=== PATIENT | male | born 1970 | race African-American/Black ===

== ENCOUNTER 2020-05-09 11:50 | Inpatient (IN) | payer OTHER ==
[2020-05-09 15:32] VITALS: BMI 20.4
[2020-05-09] MEDS ORDERED: ONDANSETRON *ODT* 4 MG TABLET SL PRN (15:46)
[2020-05-09] MEDS ORDERED: METHADONE HCL 10 MG TABLET (FOR DETOX USE ONLY) PO ONE (15:46)
[2020-05-09] MEDS ORDERED: IBUPROFEN 400 MG TABLET (FP) PO PRN (15:46)
[2020-05-09] MEDS ORDERED: BISMUTH SUBSALICYLATE 524 MG/30 ML UD PO PRN (15:46)
[2020-05-09] MEDS ORDERED: MAGNESIUM HYDROX 2400MG/30ML ORAL SUSPENSION 30 ML CUP PO PRN (15:46)
[2020-05-09] MEDS ORDERED: MENTHOL/PHENOL 1 EACH UD MM PRN (15:46)
[2020-05-09] MEDS ORDERED: MAGNESIUM CITRATE 300 ML BOTTLE PO PRN (15:46)
[2020-05-09] MEDS ORDERED: NICOTINE POLACRILEX 2 MG GUM BUC PRN (15:46)
[2020-05-09] MEDS ORDERED: ACETAMINOPHEN 325 MG TABLET (FP) PO PRN ×2 (15:46)
[2020-05-09] MEDS ORDERED: MAG HYDROX/AL HYDROX/SIMETH 30 ML UNIT-DOSE CUP PO PRN (15:46)
[2020-05-09] MEDS: cloNIDine HCL 0.1 MG TABLET PO PRN (16:42)
[2020-05-09] MEDS: NICOTINE 7 MG/24 HOURS TOPICAL PATCH TD SCH (16:45)
[2020-05-09] MEDS ORDERED: cloNIDine HCL 0.1 MG TABLET PO ONE (16:47)
[2020-05-09] MEDS: hydrOXYzine PAMOATE 25 MG CAPSULE (FP) PO SCH ×2 (17:00→22:21)
[2020-05-09] MEDS: PRENATAL VITAMINS W/ FOLIC ACID TABLET (FP) PO SCH (18:05)
[2020-05-09] MEDS: THIAMINE HCL 100 MG TABLET (FP) PO SCH (22:21)
[2020-05-09] MEDS: MELATONIN 5 MG TABLETS PO SCH (22:21)
[2020-05-10] MEDS: hydrOXYzine PAMOATE 25 MG CAPSULE (FP) PO SCH ×2 (06:31→10:40)
[2020-05-10] MEDS: cloNIDine HCL 0.1 MG TABLET PO PRN (06:32)
[2020-05-10] MEDS ORDERED: METHADONE HCL 10 MG TABLET (FOR DETOX USE ONLY) ONE (08:58)
[2020-05-10] MEDS ORDERED: METHADONE HCL 5 MG TABLET (FOR DETOX USE ONLY) ONE (08:58)
[2020-05-10] MEDS ORDERED: MINERAL OIL/PET HY-PHL TOPICAL OINTMENT 454 GM JAR TP SCH (10:00)
[2020-05-10] MEDS ORDERED: METHADONE (DETOX) 20 MG, METHADONE (DETOX) 5 MG PO ONE (10:00)
[2020-05-10] MEDS: PRENATAL VITAMINS W/ FOLIC ACID TABLET (FP) PO SCH (10:36)
[2020-05-10] MEDS: risperiDONE 1 MG TABLET PO SCH ×2 (10:36→22:22)
[2020-05-10] MEDS: NICOTINE 7 MG/24 HOURS TOPICAL PATCH TD SCH (10:37)
[2020-05-10 10:43] LABS: HEMATOCRIT 31.1 % (35.4-49); HEMOGLOBIN 9.9 GM/dL (11.7-16.9); MCH 31.8 pg (25.7-33.7); MCHC 31.8 g/dl (32.0-35.9); MEAN PLT VOLUME 8.3 fl (7.5-11.1); PLATELET COUNT 176 K/MM3 (134-434); RBC 3.11 M/mm3 (4.00-5.60); RDW 13.5 % (11.9-15.9); WHITE BLOOD COUNT 6.3 K/mm3 (4.0-10.0)
[2020-05-10 10:54] LABS: POTASSIUM 3.8 mmol/L (3.5-5.1)
[2020-05-10 11:01] LABS: CALCIUM 8.5 mg/dL (8.5-10.1)
[2020-05-10 11:04] LABS: ALBUMIN 3.1 g/dl (3.4-5.0)
[2020-05-10 11:05] LABS: CREATININE 0.9 mg/dL (0.55-1.3)
[2020-05-10 11:07] LABS: BILIRUBIN,TOTAL 0.6 mg/dL (0.2-1)
[2020-05-10] MEDS ORDERED: hydrOXYzine PAMOATE 25 MG CAPSULE (FP) PO PRN (11:45)
[2020-05-10 11:49] LABS: HIV INTERPRETATION NEGATIVE (NEGATIVE)
[2020-05-10] MEDS: ALBUTEROL SO4 HFA INHALER IH PRN (16:52)
[2020-05-10] MEDS: FERROUS SO4 325 MG TABLET (FP) PO SCH (17:51)
[2020-05-10] MEDS: METHOCARBAMOL 500 MG TABLET PO PRN (17:53)
[2020-05-10] MEDS: MELATONIN 5 MG TABLETS PO SCH (22:22)
[2020-05-10] MEDS: THIAMINE HCL 100 MG TABLET (FP) PO SCH (22:22)
[2020-05-11] MEDS: FERROUS SO4 325 MG TABLET (FP) PO SCH ×3 (07:28→18:40)
[2020-05-11] MEDS ORDERED: METHADONE HCL 10 MG TABLET (FOR DETOX USE ONLY) PO ONE (10:00)
[2020-05-11] MEDS: MINERAL OIL/PETROLAT/WATER TOPICAL CREAM 113 GM JAR TP PRN (10:04)
[2020-05-11] MEDS: PRENATAL VITAMINS W/ FOLIC ACID TABLET (FP) PO SCH (10:04)
[2020-05-11] MEDS: risperiDONE 1 MG TABLET PO SCH ×2 (10:04→22:08)
[2020-05-11] MEDS: NICOTINE 7 MG/24 HOURS TOPICAL PATCH TD SCH (10:06)
[2020-05-11] MEDS: ALBUTEROL SO4 HFA INHALER IH PRN (18:36)
[2020-05-11] MEDS: METHOCARBAMOL 500 MG TABLET PO PRN (22:08)
[2020-05-11] MEDS: MELATONIN 5 MG TABLETS PO SCH (22:08)
[2020-05-11] MEDS: THIAMINE HCL 100 MG TABLET (FP) PO SCH (22:08)
[2020-05-12] MEDS: FERROUS SO4 325 MG TABLET (FP) PO SCH ×3 (07:38→18:25)
[2020-05-12] MEDS ORDERED: METHADONE HCL 10 MG TABLET (FOR DETOX USE ONLY) ONE (08:56)
[2020-05-12] MEDS ORDERED: METHADONE HCL 5 MG TABLET (FOR DETOX USE ONLY) ONE (08:56)
[2020-05-12] MEDS ORDERED: METHADONE (DETOX) 10 MG, METHADONE (DETOX) 5 MG PO ONE (10:00)
[2020-05-12] MEDS: PRENATAL VITAMINS W/ FOLIC ACID TABLET (FP) PO SCH (10:02)
[2020-05-12] MEDS: risperiDONE 1 MG TABLET PO SCH ×2 (10:02→22:17)
[2020-05-12] MEDS: NICOTINE 7 MG/24 HOURS TOPICAL PATCH TD SCH (10:02)
[2020-05-12] MEDS: MINERAL OIL/PETROLAT/WATER TOPICAL CREAM 113 GM JAR TP PRN (10:02)
[2020-05-12 11:41] LABS: BASO % 0.6 % (0-2.0); EOS % 3.8 % (0-4.5); HEMATOCRIT 30.2 % (35.4-49); LYMPH % 20.5 % (8-40); MCH 33.1 pg (25.7-33.7); MCHC 33.2 g/dl (32.0-35.9); MEAN CELL VOLUME 99.7 fl (80-96); MEAN PLT VOLUME 9.1 fl (7.5-11.1); MONO % 8.8 % (3.8-10.2); NEUT % 66.3 % (42.8-82.8); PLATELET COUNT 187 K/MM3 (134-434); RBC 3.03 M/mm3 (4.00-5.60); RDW 13.6 % (11.9-15.9); WHITE BLOOD COUNT 6.4 K/mm3 (4.0-10.0)
[2020-05-12] MEDS: ALBUTEROL SO4 HFA INHALER IH PRN (17:35)
[2020-05-12] MEDS: THIAMINE HCL 100 MG TABLET (FP) PO SCH (22:17)
[2020-05-12] MEDS: MELATONIN 5 MG TABLETS PO SCH (22:18)
[2020-05-12] MEDS: METHOCARBAMOL 500 MG TABLET PO PRN (22:20)
[2020-05-13] MEDS: FERROUS SO4 325 MG TABLET (FP) PO SCH ×3 (07:24→18:11)
[2020-05-13] MEDS ORDERED: METHADONE HCL 10 MG TABLET (FOR DETOX USE ONLY) PO ONE (10:00)
[2020-05-13] MEDS: PRENATAL VITAMINS W/ FOLIC ACID TABLET (FP) PO SCH (10:56)
[2020-05-13] MEDS: risperiDONE 1 MG TABLET PO SCH ×2 (10:56→22:27)
[2020-05-13] MEDS: NICOTINE 7 MG/24 HOURS TOPICAL PATCH TD SCH (10:56)
[2020-05-13] MEDS ORDERED: cloNIDine HCL 0.1 MG TABLET PO ONE (18:01)
[2020-05-13] MEDS: ALBUTEROL SO4 HFA INHALER IH PRN (18:08)
[2020-05-13 21:34] VITALS: PULSE 50
[2020-05-13] MEDS: THIAMINE HCL 100 MG TABLET (FP) PO SCH (22:27)
[2020-05-13] MEDS: MELATONIN 5 MG TABLETS PO SCH (22:28)
[2020-05-14] MEDS ORDERED: METHADONE HCL 5 MG TABLET (FOR DETOX USE ONLY) PO ONE (06:00)
[2020-05-14 06:02] VITALS: BP 137/59; TEMP 97.7
[2020-05-14] MEDS: FERROUS SO4 325 MG TABLET (FP) PO SCH (07:00)
[2020-05-14] MEDS: risperiDONE 1 MG TABLET PO SCH (09:13)
== END 2020-05-14 09:35 | disposition home or self-care (01) | DRG 773 ==
LOC: YASAS 11:50 → Y6N 14:56
PROVIDERS: ADMIT Allergy & Immunology; ATTEND Allergy & Immunology
PROC: HZ2ZZZZ Detoxification Services for Substance Abuse Treatment (ICD-10-PCS; principal; 2020-05-09)
DX: F11.23 Opioid dependence with withdrawal (principal); F14.20 Cocaine dependence, uncomplicated; F12.20 Cannabis dependence, uncomplicated; F16.10 Hallucinogen abuse, uncomplicated; F17.210 Nicotine dependence, cigarettes, uncomplicated; F19.282 Other psychoactive substance dependence with psychoactive substance-induced sleep disorder; F25.9 Schizoaffective disorder, unspecified; J45.909 Unspecified asthma, uncomplicated; M48.00 Spinal stenosis, site unspecified; M54.5 Low back pain; G89.29 Other chronic pain; Z56.0 Unemployment, unspecified
CPT/HCPCS: 36415; 80053; 85025; 85027; 86780; 87389; 93005; 93010; C9803; J0735; J2794; U0003

== ENCOUNTER 2020-09-16 15:10 | Inpatient (IN) | payer OTHER ==
[2020-09-16 15:42] VITALS: BMI 19.8
[2020-09-16] MEDS ORDERED: NALOXONE HCL 0.4 MG/ML VIAL IM PRN (21:58)
[2020-09-16] MEDS ORDERED: LOPERAMIDE HCL 2 MG CAPSULE PO PRN (21:58)
[2020-09-16] MEDS ORDERED: MAGNESIUM HYDROX 2400MG/30ML ORAL SUSPENSION 30 ML CUP PO PRN (21:58)
[2020-09-16] MEDS ORDERED: P-EPHED 60MG/TRIPROLIDI 2.5MG TABLET PO PRN (21:58)
[2020-09-16] MEDS ORDERED: MAGNESIUM CITRATE 300 ML BOTTLE PO PRN (21:58)
[2020-09-16] MEDS ORDERED: ACETAMINOPHEN 325 MG TABLET (FP) PO PRN (21:58)
[2020-09-16] MEDS ORDERED: NALOXONE (NARCAN) HCL 4 MG/0.1 ML SPRAY NS PRN (21:58)
[2020-09-16] MEDS ORDERED: guaiFENesin 200 MG/10 ML 10 ML UNIT-DOSE CUPS PO PRN (21:58)
[2020-09-16] MEDS ORDERED: MAG HYDROX/AL HYDROX/SIMETH 30 ML UNIT-DOSE CUP PO PRN (21:58)
[2020-09-17] MEDS: THIAMINE HCL 100 MG TABLET (FP) PO SCH ×2 (00:55→21:09)
[2020-09-17] MEDS: MELATONIN 5 MG TABLETS PO SCH ×2 (00:55→21:09)
[2020-09-17] MEDS ORDERED: MASKS NR ONE (06:12)
[2020-09-17] MEDS ORDERED: METHADONE HCL 10 MG TABLET PO SCH (09:00)
[2020-09-17] MEDS ORDERED: METHADONE HCL 10 MG TABLET ONE (09:26)
[2020-09-17] MEDS ORDERED: METHADONE HCL 40 MG DISPERSABLE TABLET ONE (09:26)
[2020-09-17] MEDS: PRENATAL VITAMINS W/ FOLIC ACID TABLET (FP) PO SCH (09:55)
[2020-09-17] MEDS: METHADONE 10 MG, METHADONE 40 MG PO SCH (09:55)
[2020-09-17] MEDS: NICOTINE 14 MG/24 HOURS TOPICAL PATCH TD SCH (09:55)
[2020-09-17] MEDS: NICOTINE POLACRILEX 2 MG GUM BC PRN (09:57)
[2020-09-17 10:11] LABS: HEMATOCRIT 31.8 % (35.4-49); HEMOGLOBIN 10.6 GM/dL (11.7-16.9); MCH 33.6 pg (25.7-33.7); MCHC 33.3 g/dl (32.0-35.9); MEAN CELL VOLUME 100.9 fl (80-96); MEAN PLT VOLUME 8.4 fl (7.5-11.1); PLATELET COUNT 194 K/MM3 (134-434); RBC 3.15 M/mm3 (4.00-5.60); RDW 13.5 % (11.9-15.9); WHITE BLOOD COUNT 6.9 K/mm3 (4.0-10.0)
[2020-09-17 10:16] LABS: URINE APPEARANCE CLEAR; URINE BILIRUBIN NEGATIVE (NEGATIVE); URINE COLOR YELLOW; URINE GLUCOSE (UA) NEGATIVE (NEGATIVE); URINE KETONE NEGATIVE (NEGATIVE); URINE LEUK ESTERASE NEGATIVE (NEGATIVE); URINE NITRITE NEGATIVE (NEGATIVE); URINE PROTEIN NEGATIVE (NEGATIVE)
[2020-09-17 10:30] LABS: CALCIUM 8.6 mg/dL (8.5-10.1)
[2020-09-17 10:31] LABS: ALBUMIN 3.2 g/dl (3.4-5.0); BLOOD UREA NITROGEN 22.9 mg/dL (7-18)
[2020-09-17 10:34] LABS: CREATININE 1.1 mg/dL (0.55-1.3)
[2020-09-17 10:35] LABS: BILIRUBIN,TOTAL 0.3 mg/dL (0.2-1); TOT PROT 6.1 g/dl (6.4-8.2)
[2020-09-17] MEDS: hydrOXYzine PAMOATE 25 MG CAPSULE (FP) PO PRN (21:09)
[2020-09-18] MEDS ORDERED: METHADONE HCL 40 MG DISPERSABLE TABLET ONE (03:29)
[2020-09-18] MEDS ORDERED: METHADONE HCL 10 MG TABLET ONE (03:29)
[2020-09-18] MEDS: METHADONE 10 MG, METHADONE 40 MG PO SCH (06:18)
[2020-09-18] MEDS: IBUPROFEN 400 MG TABLET (FP) PO PRN ×2 (08:53→21:26)
[2020-09-18] MEDS: NICOTINE POLACRILEX 2 MG GUM BC PRN (08:54)
[2020-09-18] MEDS: PRENATAL VITAMINS W/ FOLIC ACID TABLET (FP) PO SCH (09:01)
[2020-09-18] MEDS: NICOTINE 14 MG/24 HOURS TOPICAL PATCH TD SCH (09:01)
[2020-09-18] MEDS: ALBUTEROL SO4 HFA INHALER IH PRN (16:09)
[2020-09-18] MEDS: MELATONIN 5 MG TABLETS PO SCH (21:24)
[2020-09-18] MEDS: THIAMINE HCL 100 MG TABLET (FP) PO SCH (21:24)
[2020-09-18] MEDS: hydrOXYzine PAMOATE 25 MG CAPSULE (FP) PO PRN (21:25)
[2020-09-19] MEDS ORDERED: METHADONE HCL 40 MG DISPERSABLE TABLET ONE (03:19)
[2020-09-19] MEDS ORDERED: METHADONE HCL 10 MG TABLET ONE (03:19)
[2020-09-19] MEDS: METHADONE 10 MG, METHADONE 40 MG PO SCH (05:59)
[2020-09-19] MEDS: hydrOXYzine PAMOATE 25 MG CAPSULE (FP) PO PRN ×2 (10:21→21:29)
[2020-09-19] MEDS: PRENATAL VITAMINS W/ FOLIC ACID TABLET (FP) PO SCH (10:21)
[2020-09-19] MEDS: NICOTINE 14 MG/24 HOURS TOPICAL PATCH TD SCH (10:22)
[2020-09-19] MEDS: NICOTINE POLACRILEX 2 MG GUM BC PRN (10:22)
[2020-09-19] MEDS: ALBUTEROL SO4 HFA INHALER IH PRN (10:24)
[2020-09-19] MEDS: BACITRACIN 0.9 GM PACKET TP SCH (15:26)
[2020-09-19] MEDS: IBUPROFEN 600 MG TABLET (FP) PO SCH ×2 (15:27→21:29)
[2020-09-19] MEDS: THIAMINE HCL 100 MG TABLET (FP) PO SCH (21:29)
[2020-09-19] MEDS: DOCUSATE SODIUM 100 MG CAPSULE (FP) PO SCH (21:30)
[2020-09-19] MEDS: LIDOCAINE PATCH REMOVAL MC SCH (21:30)
[2020-09-19] MEDS: MELATONIN 5 MG TABLETS PO SCH (21:30)
[2020-09-19] MEDS: AMMONIUM LACTATE 12% LOTION 225 GM BOTTLE TP SCH (21:30)
[2020-09-20] MEDS ORDERED: METHADONE HCL 10 MG TABLET ONE (05:31)
[2020-09-20] MEDS ORDERED: METHADONE HCL 40 MG DISPERSABLE TABLET ONE (05:31)
[2020-09-20 06:06] LABS: SARS-CoV-2 NAA Not Detected (Not Detected)
[2020-09-20] MEDS: IBUPROFEN 600 MG TABLET (FP) PO SCH ×3 (06:31→21:26)
[2020-09-20] MEDS: METHADONE 10 MG, METHADONE 40 MG PO SCH (06:32)
[2020-09-20] MEDS: BACITRACIN 0.9 GM PACKET TP SCH (10:29)
[2020-09-20] MEDS: NICOTINE 14 MG/24 HOURS TOPICAL PATCH TD SCH (10:30)
[2020-09-20] MEDS: PRENATAL VITAMINS W/ FOLIC ACID TABLET (FP) PO SCH (10:30)
[2020-09-20] MEDS: AMMONIUM LACTATE 12% LOTION 225 GM BOTTLE TP SCH ×2 (10:30→21:27)
[2020-09-20] MEDS: LIDOCAINE 5% TOPICAL PATCH TP SCH (10:30)
[2020-09-20] MEDS: NICOTINE POLACRILEX 2 MG GUM BC PRN (10:30)
[2020-09-20] MEDS: THIAMINE HCL 100 MG TABLET (FP) PO SCH (21:25)
[2020-09-20] MEDS: MELATONIN 5 MG TABLETS PO SCH (21:25)
[2020-09-20] MEDS: DOCUSATE SODIUM 100 MG CAPSULE (FP) PO SCH (21:26)
[2020-09-20] MEDS: LIDOCAINE PATCH REMOVAL MC SCH (21:27)
[2020-09-21] MEDS ORDERED: METHADONE HCL 10 MG TABLET ONE (03:24)
[2020-09-21] MEDS ORDERED: METHADONE HCL 40 MG DISPERSABLE TABLET ONE (03:24)
[2020-09-21] MEDS: IBUPROFEN 600 MG TABLET (FP) PO SCH ×3 (06:25→21:24)
[2020-09-21] MEDS: METHADONE 10 MG, METHADONE 40 MG PO SCH (06:25)
[2020-09-21] MEDS: PRENATAL VITAMINS W/ FOLIC ACID TABLET (FP) PO SCH (09:22)
[2020-09-21] MEDS: LIDOCAINE 5% TOPICAL PATCH TP SCH (09:22)
[2020-09-21] MEDS: BACITRACIN 0.9 GM PACKET TP SCH (09:23)
[2020-09-21] MEDS: NICOTINE POLACRILEX 2 MG GUM BC PRN (09:27)
[2020-09-21] MEDS: NICOTINE 14 MG/24 HOURS TOPICAL PATCH TD SCH (09:28)
[2020-09-21] MEDS: AMMONIUM LACTATE 12% LOTION 225 GM BOTTLE TP SCH ×2 (09:28→21:25)
[2020-09-21] MEDS: ALBUTEROL SO4 HFA INHALER IH PRN (18:03)
[2020-09-21] MEDS: MELATONIN 5 MG TABLETS PO SCH (21:25)
[2020-09-21] MEDS: THIAMINE HCL 100 MG TABLET (FP) PO SCH (21:25)
[2020-09-21] MEDS: DOCUSATE SODIUM 100 MG CAPSULE (FP) PO SCH (21:25)
[2020-09-21] MEDS: LIDOCAINE PATCH REMOVAL MC SCH (21:26)
[2020-09-22] MEDS ORDERED: METHADONE HCL 40 MG DISPERSABLE TABLET ONE (03:17)
[2020-09-22] MEDS ORDERED: METHADONE HCL 10 MG TABLET ONE (03:17)
[2020-09-22] MEDS: METHADONE 10 MG, METHADONE 40 MG PO SCH (06:27)
[2020-09-22] MEDS: IBUPROFEN 600 MG TABLET (FP) PO SCH ×3 (06:27→21:17)
[2020-09-22] MEDS: NICOTINE 14 MG/24 HOURS TOPICAL PATCH TD SCH (10:58)
[2020-09-22] MEDS: LIDOCAINE 5% TOPICAL PATCH TP SCH (10:58)
[2020-09-22] MEDS: BACITRACIN 0.9 GM PACKET TP SCH (10:58)
[2020-09-22] MEDS: AMMONIUM LACTATE 12% LOTION 225 GM BOTTLE TP SCH ×2 (10:58→21:17)
[2020-09-22] MEDS: NICOTINE POLACRILEX 2 MG GUM BC PRN (10:58)
[2020-09-22] MEDS: PRENATAL VITAMINS W/ FOLIC ACID TABLET (FP) PO SCH (10:58)
[2020-09-22] MEDS: ALBUTEROL SO4 HFA INHALER IH PRN (15:02)
[2020-09-22] MEDS: MELATONIN 5 MG TABLETS PO SCH (21:15)
[2020-09-22] MEDS: THIAMINE HCL 100 MG TABLET (FP) PO SCH (21:15)
[2020-09-22] MEDS: DOCUSATE SODIUM 100 MG CAPSULE (FP) PO SCH (21:17)
[2020-09-22] MEDS: LIDOCAINE PATCH REMOVAL MC SCH (21:18)
[2020-09-23] MEDS ORDERED: METHADONE HCL 40 MG DISPERSABLE TABLET ONE (03:17)
[2020-09-23] MEDS ORDERED: METHADONE HCL 10 MG TABLET ONE (03:18)
[2020-09-23] MEDS: IBUPROFEN 600 MG TABLET (FP) PO SCH ×3 (06:16→21:34)
[2020-09-23] MEDS: METHADONE 10 MG, METHADONE 40 MG PO SCH (06:17)
[2020-09-23] MEDS: NICOTINE 14 MG/24 HOURS TOPICAL PATCH TD SCH (10:33)
[2020-09-23] MEDS: PRENATAL VITAMINS W/ FOLIC ACID TABLET (FP) PO SCH (10:33)
[2020-09-23] MEDS: AMMONIUM LACTATE 12% LOTION 225 GM BOTTLE TP SCH ×2 (10:34→21:34)
[2020-09-23] MEDS: LIDOCAINE 5% TOPICAL PATCH TP SCH (10:34)
[2020-09-23] MEDS: BACITRACIN 0.9 GM PACKET TP SCH (10:35)
[2020-09-23] MEDS: NICOTINE POLACRILEX 2 MG GUM BC PRN (10:35)
[2020-09-23] MEDS: DOCUSATE SODIUM 100 MG CAPSULE (FP) PO SCH (21:33)
[2020-09-23] MEDS: THIAMINE HCL 100 MG TABLET (FP) PO SCH (21:33)
[2020-09-23] MEDS: LIDOCAINE PATCH REMOVAL MC SCH (21:34)
[2020-09-23] MEDS: MELATONIN 5 MG TABLETS PO SCH (21:34)
[2020-09-24] MEDS ORDERED: METHADONE HCL 40 MG DISPERSABLE TABLET ONE (04:11)
[2020-09-24] MEDS ORDERED: METHADONE HCL 10 MG TABLET ONE (04:11)
[2020-09-24] MEDS: METHADONE 10 MG, METHADONE 40 MG PO SCH (06:01)
[2020-09-24] MEDS: IBUPROFEN 600 MG TABLET (FP) PO SCH ×3 (06:01→21:30)
[2020-09-24] MEDS: BACITRACIN 0.9 GM PACKET TP SCH (10:04)
[2020-09-24] MEDS: LIDOCAINE 5% TOPICAL PATCH TP SCH (10:04)
[2020-09-24] MEDS: PRENATAL VITAMINS W/ FOLIC ACID TABLET (FP) PO SCH (10:04)
[2020-09-24] MEDS: AMMONIUM LACTATE 12% LOTION 225 GM BOTTLE TP SCH ×2 (10:04→21:31)
[2020-09-24] MEDS: NICOTINE 14 MG/24 HOURS TOPICAL PATCH TD SCH ×2 (10:04→10:06)
[2020-09-24] MEDS: NICOTINE POLACRILEX 2 MG GUM BC PRN (10:05)
[2020-09-24] MEDS: ALBUTEROL SO4 HFA INHALER IH PRN (13:41)
[2020-09-24] MEDS: DOCUSATE SODIUM 100 MG CAPSULE (FP) PO SCH (21:30)
[2020-09-24] MEDS: MELATONIN 5 MG TABLETS PO SCH (21:30)
[2020-09-24] MEDS: LIDOCAINE PATCH REMOVAL MC SCH (21:42)
[2020-09-24] MEDS: THIAMINE HCL 100 MG TABLET (FP) PO SCH (21:43)
[2020-09-25] MEDS ORDERED: METHADONE HCL 40 MG DISPERSABLE TABLET ONE (02:23)
[2020-09-25] MEDS ORDERED: METHADONE HCL 10 MG TABLET ONE (02:24)
[2020-09-25] MEDS: METHADONE 10 MG, METHADONE 40 MG PO SCH (06:19)
[2020-09-25] MEDS: IBUPROFEN 600 MG TABLET (FP) PO SCH ×3 (06:21→21:32)
[2020-09-25] MEDS: NICOTINE 14 MG/24 HOURS TOPICAL PATCH TD SCH (09:53)
[2020-09-25] MEDS: AMMONIUM LACTATE 12% LOTION 225 GM BOTTLE TP SCH ×2 (09:53→21:31)
[2020-09-25] MEDS: LIDOCAINE 5% TOPICAL PATCH TP SCH (09:53)
[2020-09-25] MEDS: PRENATAL VITAMINS W/ FOLIC ACID TABLET (FP) PO SCH (09:53)
[2020-09-25] MEDS: LIDOCAINE PATCH REMOVAL MC SCH (21:31)
[2020-09-25] MEDS: THIAMINE HCL 100 MG TABLET (FP) PO SCH (21:32)
[2020-09-25] MEDS: DOCUSATE SODIUM 100 MG CAPSULE (FP) PO SCH (21:32)
[2020-09-25] MEDS: NICOTINE POLACRILEX 2 MG GUM BC PRN (21:33)
[2020-09-25] MEDS: ALBUTEROL SO4 HFA INHALER IH PRN (21:33)
[2020-09-25] MEDS: MELATONIN 5 MG TABLETS PO SCH (21:33)
[2020-09-26] MEDS ORDERED: METHADONE HCL 10 MG TABLET ONE (03:16)
[2020-09-26] MEDS ORDERED: METHADONE HCL 40 MG DISPERSABLE TABLET ONE (03:16)
[2020-09-26] MEDS: IBUPROFEN 600 MG TABLET (FP) PO SCH ×3 (06:12→21:03)
[2020-09-26] MEDS: METHADONE 10 MG, METHADONE 40 MG PO SCH (06:12)
[2020-09-26] MEDS: PRENATAL VITAMINS W/ FOLIC ACID TABLET (FP) PO SCH (09:52)
[2020-09-26] MEDS: LIDOCAINE 5% TOPICAL PATCH TP SCH (09:53)
[2020-09-26] MEDS: NICOTINE 14 MG/24 HOURS TOPICAL PATCH TD SCH (09:55)
[2020-09-26] MEDS: AMMONIUM LACTATE 12% LOTION 225 GM BOTTLE TP SCH ×2 (09:55→21:04)
[2020-09-26] MEDS: NICOTINE POLACRILEX 2 MG GUM BC PRN (09:56)
[2020-09-26] MEDS: THIAMINE HCL 100 MG TABLET (FP) PO SCH (21:03)
[2020-09-26] MEDS: DOCUSATE SODIUM 100 MG CAPSULE (FP) PO SCH (21:04)
[2020-09-26] MEDS: MELATONIN 5 MG TABLETS PO SCH (21:04)
[2020-09-26] MEDS: LIDOCAINE PATCH REMOVAL MC SCH (21:05)
[2020-09-27] MEDS ORDERED: METHADONE HCL 40 MG DISPERSABLE TABLET ONE (03:20)
[2020-09-27] MEDS ORDERED: METHADONE HCL 10 MG TABLET ONE (03:21)
[2020-09-27] MEDS: IBUPROFEN 600 MG TABLET (FP) PO SCH ×3 (06:21→21:18)
[2020-09-27] MEDS: METHADONE 10 MG, METHADONE 40 MG PO SCH (06:21)
[2020-09-27] MEDS ORDERED: PT OWN MED DRAWER 7, Y5N ONE (08:35)
[2020-09-27] MEDS ORDERED: MASKS NR ONE ×2 (09:20→09:51)
[2020-09-27] MEDS: AMMONIUM LACTATE 12% LOTION 225 GM BOTTLE TP SCH ×2 (09:51→21:18)
[2020-09-27] MEDS: LIDOCAINE 5% TOPICAL PATCH TP SCH (09:52)
[2020-09-27] MEDS: NICOTINE 14 MG/24 HOURS TOPICAL PATCH TD SCH (09:52)
[2020-09-27] MEDS: PRENATAL VITAMINS W/ FOLIC ACID TABLET (FP) PO SCH (09:52)
[2020-09-27] MEDS: NICOTINE POLACRILEX 2 MG GUM BC PRN (09:53)
[2020-09-27] MEDS: ALBUTEROL SO4 HFA INHALER IH PRN (17:28)
[2020-09-27] MEDS: MELATONIN 5 MG TABLETS PO SCH (21:17)
[2020-09-27] MEDS: DOCUSATE SODIUM 100 MG CAPSULE (FP) PO SCH (21:17)
[2020-09-27] MEDS: THIAMINE HCL 100 MG TABLET (FP) PO SCH (21:17)
[2020-09-27] MEDS: LIDOCAINE PATCH REMOVAL MC SCH (21:18)
[2020-09-28] MEDS ORDERED: METHADONE HCL 10 MG TABLET ONE (03:23)
[2020-09-28] MEDS ORDERED: METHADONE HCL 40 MG DISPERSABLE TABLET ONE (03:23)
[2020-09-28] MEDS: IBUPROFEN 600 MG TABLET (FP) PO SCH ×3 (06:06→21:12)
[2020-09-28] MEDS: METHADONE 10 MG, METHADONE 40 MG PO SCH (06:06)
[2020-09-28] MEDS: PRENATAL VITAMINS W/ FOLIC ACID TABLET (FP) PO SCH (09:56)
[2020-09-28] MEDS: LIDOCAINE 5% TOPICAL PATCH TP SCH (09:56)
[2020-09-28] MEDS: AMMONIUM LACTATE 12% LOTION 225 GM BOTTLE TP SCH ×2 (09:57→21:13)
[2020-09-28] MEDS: NICOTINE 14 MG/24 HOURS TOPICAL PATCH TD SCH (09:57)
[2020-09-28] MEDS: ALBUTEROL SO4 HFA INHALER IH PRN (09:59)
[2020-09-28] MEDS: MELATONIN 5 MG TABLETS PO SCH (21:11)
[2020-09-28] MEDS: THIAMINE HCL 100 MG TABLET (FP) PO SCH (21:11)
[2020-09-28] MEDS: DOCUSATE SODIUM 100 MG CAPSULE (FP) PO SCH (21:12)
[2020-09-28] MEDS: LIDOCAINE PATCH REMOVAL MC SCH (21:13)
[2020-09-29] MEDS ORDERED: METHADONE HCL 40 MG DISPERSABLE TABLET ONE (03:06)
[2020-09-29] MEDS ORDERED: METHADONE HCL 10 MG TABLET ONE (03:06)
[2020-09-29] MEDS: IBUPROFEN 600 MG TABLET (FP) PO SCH ×3 (06:21→21:21)
[2020-09-29] MEDS: METHADONE 10 MG, METHADONE 40 MG PO SCH (06:21)
[2020-09-29] MEDS: AMMONIUM LACTATE 12% LOTION 225 GM BOTTLE TP SCH ×2 (09:51→21:23)
[2020-09-29] MEDS: PRENATAL VITAMINS W/ FOLIC ACID TABLET (FP) PO SCH (09:51)
[2020-09-29] MEDS: LIDOCAINE 5% TOPICAL PATCH TP SCH (09:51)
[2020-09-29] MEDS: NICOTINE 14 MG/24 HOURS TOPICAL PATCH TD SCH (09:52)
[2020-09-29] MEDS: NICOTINE POLACRILEX 2 MG GUM BC PRN (09:54)
[2020-09-29] MEDS: ALBUTEROL SO4 HFA INHALER IH PRN (09:55)
[2020-09-29] MEDS ORDERED: MASKS NR ONE (12:15)
[2020-09-29] MEDS: THIAMINE HCL 100 MG TABLET (FP) PO SCH (21:21)
[2020-09-29] MEDS: MELATONIN 5 MG TABLETS PO SCH (21:22)
[2020-09-29] MEDS: DOCUSATE SODIUM 100 MG CAPSULE (FP) PO SCH (21:24)
[2020-09-29] MEDS: LIDOCAINE PATCH REMOVAL MC SCH (21:24)
[2020-09-30] MEDS: ALBUTEROL SO4 HFA INHALER IH PRN ×2 (03:20→09:45)
[2020-09-30] MEDS: IBUPROFEN 600 MG TABLET (FP) PO SCH (06:38)
[2020-09-30 06:39] VITALS: BP 137/69; PULSE 50; TEMP 97.8
[2020-09-30] MEDS ORDERED: METHADONE HCL 10 MG TABLET PO ONE (06:42)
[2020-09-30] MEDS ORDERED: METHADONE 40 MG, METHADONE 10 MG PO ONE (07:00)
[2020-09-30] MEDS ORDERED: METHADONE HCL 40 MG DISPERSABLE TABLET ONE (07:01)
[2020-09-30] MEDS ORDERED: METHADONE HCL 10 MG TABLET ONE (07:02)
[2020-09-30] MEDS ORDERED: MASKS NR ONE (08:48)
[2020-09-30] MEDS: LIDOCAINE 5% TOPICAL PATCH TP SCH (09:45)
[2020-09-30] MEDS: PRENATAL VITAMINS W/ FOLIC ACID TABLET (FP) PO SCH (09:45)
[2020-09-30] MEDS: NICOTINE 14 MG/24 HOURS TOPICAL PATCH TD SCH (09:45)
[2020-09-30] MEDS: AMMONIUM LACTATE 12% LOTION 225 GM BOTTLE TP SCH (09:46)
== END 2020-09-30 09:55 | disposition home or self-care (01) | DRG 772 ==
LOC: YASAS 15:10 → Y3W 22:23
PROVIDERS: ADMIT Allergy & Immunology; ATTEND Allergy & Immunology
PROC: HZ42ZZZ Group Counseling for Substance Abuse Treatment, Cognitive-Behavioral (ICD-10-PCS; principal; 2020-09-16)
DX: F11.20 Opioid dependence, uncomplicated (principal); F14.20 Cocaine dependence, uncomplicated; F12.20 Cannabis dependence, uncomplicated; F17.210 Nicotine dependence, cigarettes, uncomplicated; F31.9 Bipolar disorder, unspecified; J45.20 Mild intermittent asthma, uncomplicated; K59.03 Drug induced constipation; L85.3 Xerosis cutis; M48.00 Spinal stenosis, site unspecified; Z99.89 Dependence on other enabling machines and devices; Z91.14 Patient's other noncompliance with medication regimen
CPT/HCPCS: 36415; 80053; 81003; 85027; 86780; C9803; U0003; U0005

== ENCOUNTER 2021-09-12 09:33 | Inpatient (IN) | payer BC ==
[2021-09-12] MEDS ORDERED: MAGNESIUM HYDROX 2400MG/30ML ORAL SUSPENSION 30 ML CUP PO PRN (11:58)
[2021-09-12] MEDS ORDERED: BENZOCAINE/MENTHOL (CHLORASEPTIC ) LOZENGE MM PRN (11:58)
[2021-09-12] MEDS ORDERED: NALOXONE HCL (KLOXXADO) 8 MG SPRAY NS PRN (11:58)
[2021-09-12] MEDS ORDERED: ACETAMINOPHEN 325 MG TABLET (FP) PO PRN ×2 (11:58)
[2021-09-12] MEDS ORDERED: MAG HYDROX/AL HYDROX/SIMETH 30 ML UNIT-DOSE CUP PO PRN (11:58)
[2021-09-12] MEDS ORDERED: DICYCLOMINE HCL 10 MG CAPSULE PO PRN (11:58)
[2021-09-12] MEDS ORDERED: MAGNESIUM CITRATE 300 ML BOTTLE PO PRN (11:58)
[2021-09-12] MEDS ORDERED: METHOCARBAMOL 500 MG TABLET PO PRN (11:58)
[2021-09-12] MEDS ORDERED: LOPERAMIDE HCL 2 MG CAPSULE PO PRN (11:58)
[2021-09-12] MEDS ORDERED: IBUPROFEN 400 MG TABLET (FP) PO PRN (11:58)
[2021-09-12] MEDS ORDERED: NICOTINE 10 MG CARTRIDGE (INHALER) IH PRN (11:58)
[2021-09-12] MEDS ORDERED: ONDANSETRON *ODT* 4 MG TABLET SL PRN (11:58)
[2021-09-12] MEDS ORDERED: BISMUTH SUBSALICYLATE 524 MG/30 ML PO PRN (11:58)
[2021-09-12 12:29] VITALS: BMI 20.9
[2021-09-12] MEDS ORDERED: ALBUTEROL SO4 HFA INHALER IH PRN (12:32)
[2021-09-12] MEDS ORDERED: LIDOCAINE 5% TOPICAL PATCH TP SCH (13:15)
[2021-09-12] MEDS ORDERED: HYDROCORTISONE 0.5% TOPICAL CREAM 30 GM TUBE TP PRN (13:30)
[2021-09-12] MEDS: hydrOXYzine PAMOATE 25 MG CAPSULE (FP) PO SCH ×3 (15:39→23:12)
[2021-09-12] MEDS: PRENATAL VITAMINS W/ FOLIC ACID TABLET (FP) PO SCH (15:45)
[2021-09-12] MEDS: NICOTINE 14 MG/24 HOURS TOPICAL PATCH TD SCH (15:46)
[2021-09-12] MEDS: LIDOCAINE 5% TOPICAL PATCH TP SCH (16:40)
[2021-09-12 17:08] LABS: HEMOGLOBIN 10.2 GM/dL (11.7-16.9); MCH 32.5 pg (25.7-33.7); MCHC 32.8 g/dl (32.0-35.9); MEAN CELL VOLUME 99.2 fl (80-96); MEAN PLT VOLUME 8.2 fl (7.5-11.1); PLATELET COUNT 183 10^3/uL (134-434); RBC 3.12 M/mm3 (4.00-5.60); WHITE BLOOD COUNT 6.1 K/mm3 (4.0-10.0)
[2021-09-12 17:18] LABS: CALCIUM 8.3 mg/dL (8.5-10.1)
[2021-09-12 17:19] LABS: ALBUMIN 3.3 g/dl (3.4-5.0); BLOOD UREA NITROGEN 20.5 mg/dL (7-18)
[2021-09-12 17:22] LABS: CREATININE 1.1 mg/dL (0.55-1.3)
[2021-09-12 17:23] LABS: BILIRUBIN,TOTAL 0.3 mg/dL (0.2-1); TOT PROT 6.5 g/dl (6.4-8.2)
[2021-09-12] MEDS ORDERED: THIAMINE HCL 100 MG TABLET (FP) PO SCH (22:00)
[2021-09-12] MEDS ORDERED: LIDOCAINE PATCH REMOVAL MC SCH (22:00)
[2021-09-12] MEDS ORDERED: MELATONIN 5 MG TABLETS PO SCH (22:00)
[2021-09-13] MEDS: hydrOXYzine PAMOATE 25 MG CAPSULE (FP) PO SCH ×3 (05:38→14:05)
[2021-09-13] MEDS ORDERED: CYCLOBENZAPRINE HCL 10 MG TABLET (FP) PO PRN (09:39)
[2021-09-13] MEDS ORDERED: NAPROXEN 500 MG TABLET PO PRN (09:39)
[2021-09-13] MEDS ORDERED: methaDONE HCL 10 MG TABLET PO SCH (09:45)
[2021-09-13] MEDS: LIDOCAINE 5% TOPICAL PATCH TP SCH (10:51)
[2021-09-13] MEDS: NICOTINE 14 MG/24 HOURS TOPICAL PATCH TD SCH (10:53)
[2021-09-13] MEDS: PRENATAL VITAMINS W/ FOLIC ACID TABLET (FP) PO SCH (10:54)
[2021-09-13 14:08] VITALS: BP 150/76; PULSE 60; TEMP 98.1
[2021-09-13] MEDS ORDERED: OLANZapine 5 MG TABLET PO SCH (22:00)
[2021-09-13] MEDS ORDERED: busPIRone HCL 5 MG TABLET PO SCH (22:00)
== END 2021-09-13 14:04 | disposition other institution (70) | DRG 773 ==
LOC: YASAS 09:33 → Y3N 11:36
PROVIDERS: ADMIT Allergy & Immunology; ATTEND Allergy & Immunology
PROC: HZ2ZZZZ Detoxification Services for Substance Abuse Treatment (ICD-10-PCS; principal; 2021-09-12)
DX: F10.230 Alcohol dependence with withdrawal, uncomplicated (principal); F11.20 Opioid dependence, uncomplicated; F14.20 Cocaine dependence, uncomplicated; F12.20 Cannabis dependence, uncomplicated; F17.210 Nicotine dependence, cigarettes, uncomplicated; F31.9 Bipolar disorder, unspecified; F25.9 Schizoaffective disorder, unspecified; F19.24 Other psychoactive substance dependence with psychoactive substance-induced mood disorder; G62.9 Polyneuropathy, unspecified; I10 Essential (primary) hypertension; J45.20 Mild intermittent asthma, uncomplicated; M48.00 Spinal stenosis, site unspecified; M41.9 Scoliosis, unspecified; M54.50 Low back pain, unspecified; Z99.89 Dependence on other enabling machines and devices; Z28.311 Partially vaccinated for COVID-19; Z91.14 Patient's other noncompliance with medication regimen
CPT/HCPCS: 36415; 80053; 85027; 86780; 87811; 93005; 93010; C9803-CS; U0003; U0005

== ENCOUNTER 2021-09-13 14:58 | Inpatient (IN) | payer BC ==
[~2021-09-13 14:58] MED LIST: ACETAMINOPHEN 325 MG TABLET (FP) PO PRN; IBUPROFEN 400 MG TABLET (FP) PO PRN; LIDOCAINE 5% TOPICAL PATCH TP SCH; LIDOCAINE PATCH REMOVAL MC SCH; LOPERAMIDE HCL 2 MG CAPSULE PO PRN; MAG HYDROX/AL HYDROX/SIMETH 30 ML UNIT-DOSE CUP PO PRN; MAGNESIUM CITRATE 300 ML BOTTLE PO PRN; MAGNESIUM HYDROX 2400MG/30ML ORAL SUSPENSION 30 ML CUP PO PRN; MELATONIN 5 MG TABLETS PO SCH; NICOTINE 10 MG CARTRIDGE (INHALER) IH PRN; NICOTINE 21 MG/24 HOURS TOPICAL PATCH TD SCH; P-EPHED 60MG/TRIPROLIDI 2.5MG TABLET PO PRN; PRENATAL VITAMINS W/ FOLIC ACID TABLET (FP) PO SCH; THIAMINE HCL 100 MG TABLET (FP) PO SCH; guaiFENesin 200 MG/10 ML 10 ML UNIT-DOSE CUPS PO PRN; hydrOXYzine PAMOATE 25 MG CAPSULE (FP) PO SCH
[2021-09-13] MEDS ORDERED: MAGNESIUM CITRATE 300 ML BOTTLE PO PRN (16:05)
[2021-09-13] MEDS ORDERED: IBUPROFEN 400 MG TABLET (FP) PO PRN (16:05)
[2021-09-13] MEDS ORDERED: BENZOCAINE/MENTHOL (CHLORASEPTIC ) LOZENGE MM PRN (16:05)
[2021-09-13] MEDS ORDERED: MAG HYDROX/AL HYDROX/SIMETH 30 ML UNIT-DOSE CUP PO PRN (16:05)
[2021-09-13] MEDS ORDERED: P-EPHED 60MG/TRIPROLIDI 2.5MG TABLET PO PRN (16:05)
[2021-09-13] MEDS ORDERED: LOPERAMIDE HCL 2 MG CAPSULE PO PRN (16:05)
[2021-09-13] MEDS ORDERED: guaiFENesin 200 MG/10 ML 10 ML UNIT-DOSE CUPS PO PRN (16:05)
[2021-09-13] MEDS: hydrOXYzine PAMOATE 25 MG CAPSULE (FP) PO SCH ×2 (17:05→21:20)
[2021-09-13] MEDS: ALBUTEROL SO4 HFA INHALER IH PRN (17:05)
[2021-09-13] MEDS: NICOTINE 10 MG CARTRIDGE (INHALER) IH PRN (17:07)
[2021-09-13] MEDS: THIAMINE HCL 100 MG TABLET (FP) PO SCH (21:20)
[2021-09-13] MEDS: MELATONIN 5 MG TABLETS PO SCH (21:20)
[2021-09-13] MEDS: busPIRone HCL 5 MG TABLET PO SCH (21:20)
[2021-09-13] MEDS: OLANZapine 5 MG TABLET PO SCH (21:21)
[2021-09-14] MEDS: methaDONE HCL 10 MG TABLET PO SCH (06:58)
[2021-09-14] MEDS: hydrOXYzine PAMOATE 25 MG CAPSULE (FP) PO SCH ×2 (06:58→09:56)
[2021-09-14] MEDS: ALBUTEROL SO4 HFA INHALER IH PRN ×2 (09:13→21:19)
[2021-09-14] MEDS: busPIRone HCL 5 MG TABLET PO SCH ×2 (09:53→21:20)
[2021-09-14] MEDS: PRENATAL VITAMINS W/ FOLIC ACID TABLET (FP) PO SCH (09:54)
[2021-09-14] MEDS: NICOTINE 7 MG/24 HOURS TOPICAL PATCH TD SCH (09:54)
[2021-09-14] MEDS: FERROUS SO4 325 MG TABLET (FP) PO SCH ×2 (14:42→17:59)
[2021-09-14] MEDS: DOCUSATE SODIUM 100 MG CAPSULE (FP) PO SCH ×2 (14:42→21:19)
[2021-09-14] MEDS: LIDOCAINE 5% TOPICAL PATCH TP SCH (15:04)
[2021-09-14] MEDS: OLANZapine 5 MG TABLET PO SCH (21:19)
[2021-09-14] MEDS: MELATONIN 5 MG TABLETS PO SCH (21:19)
[2021-09-14] MEDS: THIAMINE HCL 100 MG TABLET (FP) PO SCH (21:19)
[2021-09-14] MEDS: LIDOCAINE PATCH REMOVAL MC SCH (21:20)
[2021-09-15] MEDS: methaDONE HCL 10 MG TABLET PO SCH (06:56)
[2021-09-15] MEDS: DOCUSATE SODIUM 100 MG CAPSULE (FP) PO SCH ×3 (06:56→21:06)
[2021-09-15] MEDS: FERROUS SO4 325 MG TABLET (FP) PO SCH ×3 (07:02→17:11)
[2021-09-15] MEDS: PRENATAL VITAMINS W/ FOLIC ACID TABLET (FP) PO SCH (11:07)
[2021-09-15] MEDS: busPIRone HCL 5 MG TABLET PO SCH ×2 (11:07→21:06)
[2021-09-15] MEDS: NICOTINE 7 MG/24 HOURS TOPICAL PATCH TD SCH (11:08)
[2021-09-15] MEDS: NICOTINE 10 MG CARTRIDGE (INHALER) IH PRN (11:08)
[2021-09-15] MEDS: LIDOCAINE 5% TOPICAL PATCH TP SCH (11:10)
[2021-09-15] MEDS: OLANZapine 5 MG TABLET PO SCH (21:06)
[2021-09-15] MEDS: MELATONIN 5 MG TABLETS PO SCH (21:06)
[2021-09-15] MEDS: THIAMINE HCL 100 MG TABLET (FP) PO SCH (21:06)
[2021-09-15] MEDS: LIDOCAINE PATCH REMOVAL MC SCH (21:07)
[2021-09-16] MEDS: DOCUSATE SODIUM 100 MG CAPSULE (FP) PO SCH ×3 (06:29→21:14)
[2021-09-16] MEDS: methaDONE HCL 10 MG TABLET PO SCH (06:29)
[2021-09-16] MEDS: FERROUS SO4 325 MG TABLET (FP) PO SCH ×3 (07:12→17:08)
[2021-09-16] MEDS: LIDOCAINE 5% TOPICAL PATCH TP SCH (09:56)
[2021-09-16] MEDS: PRENATAL VITAMINS W/ FOLIC ACID TABLET (FP) PO SCH (09:56)
[2021-09-16] MEDS: NICOTINE 7 MG/24 HOURS TOPICAL PATCH TD SCH (09:56)
[2021-09-16] MEDS: busPIRone HCL 5 MG TABLET PO SCH ×2 (09:57→21:13)
[2021-09-16] MEDS: NICOTINE 10 MG CARTRIDGE (INHALER) IH PRN ×2 (09:58→15:59)
[2021-09-16] MEDS: ALBUTEROL SO4 HFA INHALER IH PRN (12:14)
[2021-09-16] MEDS: OLANZapine 5 MG TABLET PO SCH (21:13)
[2021-09-16] MEDS: THIAMINE HCL 100 MG TABLET (FP) PO SCH (21:14)
[2021-09-16] MEDS: LIDOCAINE PATCH REMOVAL MC SCH (21:14)
[2021-09-16] MEDS: MELATONIN 5 MG TABLETS PO SCH (21:14)
[2021-09-17] MEDS: methaDONE HCL 10 MG TABLET PO SCH (06:34)
[2021-09-17] MEDS: DOCUSATE SODIUM 100 MG CAPSULE (FP) PO SCH ×3 (06:34→21:07)
[2021-09-17] MEDS: FERROUS SO4 325 MG TABLET (FP) PO SCH ×3 (07:01→17:38)
[2021-09-17] MEDS: PRENATAL VITAMINS W/ FOLIC ACID TABLET (FP) PO SCH (09:52)
[2021-09-17] MEDS: busPIRone HCL 5 MG TABLET PO SCH ×2 (09:52→21:07)
[2021-09-17] MEDS: LIDOCAINE 5% TOPICAL PATCH TP SCH (09:52)
[2021-09-17] MEDS: NICOTINE 7 MG/24 HOURS TOPICAL PATCH TD SCH (09:52)
[2021-09-17] MEDS: NICOTINE 10 MG CARTRIDGE (INHALER) IH PRN (11:13)
[2021-09-17] MEDS: MELATONIN 5 MG TABLETS PO SCH (21:07)
[2021-09-17] MEDS: LIDOCAINE PATCH REMOVAL MC SCH (21:07)
[2021-09-17] MEDS: THIAMINE HCL 100 MG TABLET (FP) PO SCH (21:08)
[2021-09-17] MEDS: OLANZapine 5 MG TABLET PO SCH (21:09)
[2021-09-17] MEDS: ACETAMINOPHEN 325 MG TABLET (FP) PO PRN (21:11)
[2021-09-18] MEDS: methaDONE HCL 10 MG TABLET PO SCH (07:00)
[2021-09-18] MEDS: FERROUS SO4 325 MG TABLET (FP) PO SCH ×3 (07:01→17:04)
[2021-09-18] MEDS: DOCUSATE SODIUM 100 MG CAPSULE (FP) PO SCH ×3 (07:01→21:07)
[2021-09-18] MEDS: PRENATAL VITAMINS W/ FOLIC ACID TABLET (FP) PO SCH (09:45)
[2021-09-18] MEDS: NICOTINE 7 MG/24 HOURS TOPICAL PATCH TD SCH (09:48)
[2021-09-18] MEDS: LIDOCAINE 5% TOPICAL PATCH TP SCH (09:49)
[2021-09-18] MEDS: busPIRone HCL 5 MG TABLET PO SCH ×2 (09:49→21:07)
[2021-09-18] MEDS: ALBUTEROL SO4 HFA INHALER IH PRN (12:57)
[2021-09-18] MEDS: ACETAMINOPHEN 325 MG TABLET (FP) PO PRN (18:58)
[2021-09-18] MEDS: OLANZapine 5 MG TABLET PO SCH (21:07)
[2021-09-18] MEDS: THIAMINE HCL 100 MG TABLET (FP) PO SCH (21:07)
[2021-09-18] MEDS: hydrOXYzine PAMOATE 25 MG CAPSULE (FP) PO PRN (21:07)
[2021-09-18] MEDS: MELATONIN 5 MG TABLETS PO SCH (21:07)
[2021-09-18] MEDS: LIDOCAINE PATCH REMOVAL MC SCH (21:07)
[2021-09-18] MEDS: NICOTINE 10 MG CARTRIDGE (INHALER) IH PRN (21:13)
[2021-09-19] MEDS: methaDONE HCL 10 MG TABLET PO SCH (06:34)
[2021-09-19] MEDS: DOCUSATE SODIUM 100 MG CAPSULE (FP) PO SCH ×3 (06:34→21:58)
[2021-09-19] MEDS: FERROUS SO4 325 MG TABLET (FP) PO SCH ×3 (07:12→16:56)
[2021-09-19] MEDS: busPIRone HCL 5 MG TABLET PO SCH ×2 (09:40→21:58)
[2021-09-19] MEDS: PRENATAL VITAMINS W/ FOLIC ACID TABLET (FP) PO SCH (09:40)
[2021-09-19] MEDS: LIDOCAINE 5% TOPICAL PATCH TP SCH (09:40)
[2021-09-19] MEDS: NICOTINE 7 MG/24 HOURS TOPICAL PATCH TD SCH (09:41)
[2021-09-19] MEDS: hydrOXYzine PAMOATE 25 MG CAPSULE (FP) PO PRN (09:41)
[2021-09-19] MEDS: ACETAMINOPHEN 325 MG TABLET (FP) PO PRN (15:39)
[2021-09-19] MEDS: OLANZapine 5 MG TABLET PO SCH (21:58)
[2021-09-19] MEDS: MELATONIN 5 MG TABLETS PO SCH (21:59)
[2021-09-19] MEDS: LIDOCAINE PATCH REMOVAL MC SCH (21:59)
[2021-09-19] MEDS: THIAMINE HCL 100 MG TABLET (FP) PO SCH (21:59)
[2021-09-19] MEDS: NICOTINE 10 MG CARTRIDGE (INHALER) IH PRN (22:00)
[2021-09-20] MEDS: methaDONE HCL 10 MG TABLET PO SCH (06:49)
[2021-09-20] MEDS: DOCUSATE SODIUM 100 MG CAPSULE (FP) PO SCH ×3 (06:49→21:29)
[2021-09-20] MEDS: FERROUS SO4 325 MG TABLET (FP) PO SCH ×3 (09:10→21:29)
[2021-09-20] MEDS: busPIRone HCL 5 MG TABLET PO SCH ×2 (09:10→21:29)
[2021-09-20] MEDS: LIDOCAINE 5% TOPICAL PATCH TP SCH (09:10)
[2021-09-20] MEDS: PRENATAL VITAMINS W/ FOLIC ACID TABLET (FP) PO SCH (09:10)
[2021-09-20] MEDS: NICOTINE 7 MG/24 HOURS TOPICAL PATCH TD SCH (09:11)
[2021-09-20] MEDS: ALBUTEROL SO4 HFA INHALER IH PRN (09:45)
[2021-09-20 12:08] LABS: SARS-CoV-2 NAA Not Detected (Not Detected)
[2021-09-20] MEDS: MELATONIN 5 MG TABLETS PO SCH (21:29)
[2021-09-20] MEDS: OLANZapine 5 MG TABLET PO SCH (21:29)
[2021-09-20] MEDS: LIDOCAINE PATCH REMOVAL MC SCH (21:29)
[2021-09-20] MEDS: THIAMINE HCL 100 MG TABLET (FP) PO SCH (21:29)
[2021-09-20] MEDS: hydrOXYzine PAMOATE 25 MG CAPSULE (FP) PO PRN (21:31)
[2021-09-20] MEDS: NICOTINE 10 MG CARTRIDGE (INHALER) IH PRN (21:32)
[2021-09-21] MEDS: DOCUSATE SODIUM 100 MG CAPSULE (FP) PO SCH ×3 (06:49→21:56)
[2021-09-21] MEDS: methaDONE HCL 10 MG TABLET PO SCH (06:49)
[2021-09-21] MEDS: FERROUS SO4 325 MG TABLET (FP) PO SCH ×3 (07:48→17:30)
[2021-09-21] MEDS: PRENATAL VITAMINS W/ FOLIC ACID TABLET (FP) PO SCH (10:21)
[2021-09-21] MEDS: busPIRone HCL 5 MG TABLET PO SCH ×2 (10:21→21:56)
[2021-09-21] MEDS: LIDOCAINE 5% TOPICAL PATCH TP SCH (10:21)
[2021-09-21] MEDS: NICOTINE 7 MG/24 HOURS TOPICAL PATCH TD SCH (10:21)
[2021-09-21] MEDS: NICOTINE 10 MG CARTRIDGE (INHALER) IH PRN (11:23)
[2021-09-21] MEDS: ALBUTEROL SO4 HFA INHALER IH PRN (13:19)
[2021-09-21] MEDS: MAGNESIUM HYDROX 2400MG/30ML ORAL SUSPENSION 30 ML CUP PO PRN (13:56)
[2021-09-21] MEDS: LIDOCAINE PATCH REMOVAL MC SCH (21:56)
[2021-09-21] MEDS: THIAMINE HCL 100 MG TABLET (FP) PO SCH (21:56)
[2021-09-21] MEDS: OLANZapine 5 MG TABLET PO SCH (21:56)
[2021-09-21] MEDS: MELATONIN 5 MG TABLETS PO SCH (21:56)
[2021-09-21] MEDS: METHOCARBAMOL 500 MG TABLET PO PRN (21:57)
[2021-09-21] MEDS: hydrOXYzine PAMOATE 25 MG CAPSULE (FP) PO PRN (21:58)
[2021-09-22] MEDS: methaDONE HCL 10 MG TABLET PO SCH (06:24)
[2021-09-22] MEDS: ALBUTEROL SO4 HFA INHALER IH PRN (06:24)
[2021-09-22] MEDS: DOCUSATE SODIUM 100 MG CAPSULE (FP) PO SCH ×4 (06:24→21:34)
[2021-09-22] MEDS: FERROUS SO4 325 MG TABLET (FP) PO SCH ×4 (07:02→17:43)
[2021-09-22] MEDS: LIDOCAINE 5% TOPICAL PATCH TP SCH (09:55)
[2021-09-22] MEDS: busPIRone HCL 5 MG TABLET PO SCH ×2 (09:55→21:36)
[2021-09-22] MEDS: PRENATAL VITAMINS W/ FOLIC ACID TABLET (FP) PO SCH (09:55)
[2021-09-22] MEDS: NICOTINE 7 MG/24 HOURS TOPICAL PATCH TD SCH (09:55)
[2021-09-22 13:12] LABS: URINE APPEARANCE CLEAR; URINE BILIRUBIN NEGATIVE (NEGATIVE); URINE COLOR YELLOW; URINE GLUCOSE (UA) NEGATIVE (NEGATIVE); URINE KETONE TRACE (NEGATIVE); URINE LEUK ESTERASE NEGATIVE (NEGATIVE); URINE NITRITE NEGATIVE (NEGATIVE); URINE PROTEIN NEGATIVE (NEGATIVE); URINE UROBILINOGEN 0.2 mg/dL (0.2-1.0)
[2021-09-22] MEDS: NICOTINE 10 MG CARTRIDGE (INHALER) IH PRN (19:12)
[2021-09-22] MEDS: MELATONIN 5 MG TABLETS PO SCH (21:34)
[2021-09-22] MEDS: METHOCARBAMOL 500 MG TABLET PO PRN (21:34)
[2021-09-22] MEDS: THIAMINE HCL 100 MG TABLET (FP) PO SCH (21:36)
[2021-09-22] MEDS: OLANZapine 5 MG TABLET PO SCH (21:36)
[2021-09-23] MEDS: LIDOCAINE PATCH REMOVAL MC SCH ×2 (00:45→21:12)
[2021-09-23] MEDS: methaDONE HCL 10 MG TABLET PO SCH (06:49)
[2021-09-23] MEDS: DOCUSATE SODIUM 100 MG CAPSULE (FP) PO SCH ×3 (06:50→21:12)
[2021-09-23] MEDS: FERROUS SO4 325 MG TABLET (FP) PO SCH ×3 (08:21→22:21)
[2021-09-23] MEDS: PRENATAL VITAMINS W/ FOLIC ACID TABLET (FP) PO SCH (09:54)
[2021-09-23] MEDS: busPIRone HCL 5 MG TABLET PO SCH ×2 (09:54→21:12)
[2021-09-23] MEDS: NICOTINE 7 MG/24 HOURS TOPICAL PATCH TD SCH (09:55)
[2021-09-23] MEDS: LIDOCAINE 5% TOPICAL PATCH TP SCH (09:55)
[2021-09-23] MEDS: METHOCARBAMOL 500 MG TABLET PO PRN (21:12)
[2021-09-23] MEDS: OLANZapine 5 MG TABLET PO SCH (21:12)
[2021-09-23] MEDS: THIAMINE HCL 100 MG TABLET (FP) PO SCH (21:12)
[2021-09-23] MEDS: MELATONIN 5 MG TABLETS PO SCH (21:12)
[2021-09-23] MEDS: hydrOXYzine PAMOATE 25 MG CAPSULE (FP) PO PRN (21:59)
[2021-09-24] MEDS: methaDONE HCL 10 MG TABLET PO SCH (06:42)
[2021-09-24] MEDS: DOCUSATE SODIUM 100 MG CAPSULE (FP) PO SCH ×3 (06:42→21:08)
[2021-09-24] MEDS: FERROUS SO4 325 MG TABLET (FP) PO SCH ×3 (07:02→17:14)
[2021-09-24] MEDS: PRENATAL VITAMINS W/ FOLIC ACID TABLET (FP) PO SCH (09:49)
[2021-09-24] MEDS: busPIRone HCL 5 MG TABLET PO SCH ×2 (09:50→21:09)
[2021-09-24] MEDS: LIDOCAINE 5% TOPICAL PATCH TP SCH (09:51)
[2021-09-24] MEDS: NICOTINE 7 MG/24 HOURS TOPICAL PATCH TD SCH (09:52)
[2021-09-24] MEDS: NICOTINE 10 MG CARTRIDGE (INHALER) IH PRN (09:52)
[2021-09-24] MEDS: ALBUTEROL SO4 HFA INHALER IH PRN (14:47)
[2021-09-24] MEDS: hydrOXYzine PAMOATE 25 MG CAPSULE (FP) PO PRN (21:08)
[2021-09-24] MEDS: THIAMINE HCL 100 MG TABLET (FP) PO SCH (21:08)
[2021-09-24] MEDS: METHOCARBAMOL 500 MG TABLET PO PRN (21:08)
[2021-09-24] MEDS: MELATONIN 5 MG TABLETS PO SCH (21:08)
[2021-09-24] MEDS: OLANZapine 5 MG TABLET PO SCH (21:08)
[2021-09-24] MEDS: LIDOCAINE PATCH REMOVAL MC SCH (21:10)
[2021-09-25] MEDS: methaDONE HCL 10 MG TABLET PO SCH (06:39)
[2021-09-25] MEDS: DOCUSATE SODIUM 100 MG CAPSULE (FP) PO SCH ×3 (06:39→21:14)
[2021-09-25] MEDS: METHOCARBAMOL 500 MG TABLET PO PRN ×2 (06:40→21:14)
[2021-09-25] MEDS: FERROUS SO4 325 MG TABLET (FP) PO SCH ×3 (07:06→17:57)
[2021-09-25] MEDS: busPIRone HCL 5 MG TABLET PO SCH ×2 (10:00→21:14)
[2021-09-25] MEDS: NICOTINE 7 MG/24 HOURS TOPICAL PATCH TD SCH (10:00)
[2021-09-25] MEDS: PRENATAL VITAMINS W/ FOLIC ACID TABLET (FP) PO SCH (10:00)
[2021-09-25] MEDS: LIDOCAINE 5% TOPICAL PATCH TP SCH (10:01)
[2021-09-25] MEDS: MAGNESIUM HYDROX 2400MG/30ML ORAL SUSPENSION 30 ML CUP PO PRN (12:50)
[2021-09-25] MEDS: MELATONIN 5 MG TABLETS PO SCH (21:14)
[2021-09-25] MEDS: THIAMINE HCL 100 MG TABLET (FP) PO SCH (21:14)
[2021-09-25] MEDS: OLANZapine 5 MG TABLET PO SCH (21:14)
[2021-09-25] MEDS: LIDOCAINE PATCH REMOVAL MC SCH (21:15)
[2021-09-26] MEDS: DOCUSATE SODIUM 100 MG CAPSULE (FP) PO SCH ×3 (06:50→21:11)
[2021-09-26] MEDS: methaDONE HCL 10 MG TABLET PO SCH (06:50)
[2021-09-26] MEDS: ALBUTEROL SO4 HFA INHALER IH PRN ×2 (06:52→23:04)
[2021-09-26] MEDS: FERROUS SO4 325 MG TABLET (FP) PO SCH ×3 (07:56→17:50)
[2021-09-26] MEDS: LIDOCAINE 5% TOPICAL PATCH TP SCH (10:03)
[2021-09-26] MEDS: PRENATAL VITAMINS W/ FOLIC ACID TABLET (FP) PO SCH (10:03)
[2021-09-26] MEDS: busPIRone HCL 5 MG TABLET PO SCH ×2 (10:03→21:11)
[2021-09-26] MEDS: NICOTINE 7 MG/24 HOURS TOPICAL PATCH TD SCH (10:03)
[2021-09-26] MEDS ORDERED: OLANZapine 5 MG TABLET PO ONE (10:51)
[2021-09-26] MEDS: MELATONIN 5 MG TABLETS PO SCH (21:10)
[2021-09-26] MEDS: OLANZapine 5 MG TABLET PO SCH (21:11)
[2021-09-26] MEDS: THIAMINE HCL 100 MG TABLET (FP) PO SCH (21:11)
[2021-09-26] MEDS: LIDOCAINE PATCH REMOVAL MC SCH (21:11)
[2021-09-26] MEDS: METHOCARBAMOL 500 MG TABLET PO PRN (21:11)
[2021-09-27] MEDS: methaDONE HCL 10 MG TABLET PO SCH (06:32)
[2021-09-27] MEDS: DOCUSATE SODIUM 100 MG CAPSULE (FP) PO SCH ×3 (06:32→21:53)
[2021-09-27] MEDS: FERROUS SO4 325 MG TABLET (FP) PO SCH ×3 (07:11→18:27)
[2021-09-27] MEDS: NICOTINE 7 MG/24 HOURS TOPICAL PATCH TD SCH (09:58)
[2021-09-27] MEDS: PRENATAL VITAMINS W/ FOLIC ACID TABLET (FP) PO SCH (09:58)
[2021-09-27] MEDS: OLANZapine 5 MG TABLET PO SCH ×2 (09:58→21:53)
[2021-09-27] MEDS: busPIRone HCL 5 MG TABLET PO SCH ×2 (09:58→21:54)
[2021-09-27] MEDS: hydrOXYzine PAMOATE 25 MG CAPSULE (FP) PO PRN ×2 (09:58→21:54)
[2021-09-27] MEDS: LIDOCAINE 5% TOPICAL PATCH TP SCH (09:59)
[2021-09-27] MEDS: ALBUTEROL SO4 HFA INHALER IH PRN (17:27)
[2021-09-27] MEDS: LIDOCAINE PATCH REMOVAL MC SCH (21:55)
[2021-09-27] MEDS: MELATONIN 5 MG TABLETS PO SCH (21:55)
[2021-09-27] MEDS: THIAMINE HCL 100 MG TABLET (FP) PO SCH (21:56)
[2021-09-28] MEDS: methaDONE HCL 10 MG TABLET PO SCH (06:14)
[2021-09-28] MEDS: DOCUSATE SODIUM 100 MG CAPSULE (FP) PO SCH ×3 (06:17→22:33)
[2021-09-28] MEDS: FERROUS SO4 325 MG TABLET (FP) PO SCH ×3 (07:01→17:43)
[2021-09-28] MEDS: PRENATAL VITAMINS W/ FOLIC ACID TABLET (FP) PO SCH (10:06)
[2021-09-28] MEDS: LIDOCAINE 5% TOPICAL PATCH TP SCH (10:07)
[2021-09-28] MEDS: busPIRone HCL 5 MG TABLET PO SCH ×2 (10:07→22:33)
[2021-09-28] MEDS: NICOTINE 7 MG/24 HOURS TOPICAL PATCH TD SCH (10:08)
[2021-09-28] MEDS: OLANZapine 5 MG TABLET PO SCH ×2 (10:09→22:34)
[2021-09-28] MEDS: ALBUTEROL SO4 HFA INHALER IH PRN (18:30)
[2021-09-28] MEDS: MELATONIN 5 MG TABLETS PO SCH (22:33)
[2021-09-28] MEDS: hydrOXYzine PAMOATE 25 MG CAPSULE (FP) PO PRN (22:34)
[2021-09-28] MEDS: LIDOCAINE PATCH REMOVAL MC SCH (22:34)
[2021-09-28] MEDS: THIAMINE HCL 100 MG TABLET (FP) PO SCH (22:34)
[2021-09-29] MEDS: DOCUSATE SODIUM 100 MG CAPSULE (FP) PO SCH ×3 (06:05→21:10)
[2021-09-29] MEDS: methaDONE HCL 10 MG TABLET PO SCH (06:05)
[2021-09-29] MEDS: ALBUTEROL SO4 HFA INHALER IH PRN (06:25)
[2021-09-29] MEDS: FERROUS SO4 325 MG TABLET (FP) PO SCH ×3 (07:00→17:16)
[2021-09-29] MEDS: busPIRone HCL 5 MG TABLET PO SCH ×2 (10:04→21:10)
[2021-09-29] MEDS: OLANZapine 5 MG TABLET PO SCH ×2 (10:04→21:13)
[2021-09-29] MEDS: PRENATAL VITAMINS W/ FOLIC ACID TABLET (FP) PO SCH (10:04)
[2021-09-29] MEDS: NICOTINE 7 MG/24 HOURS TOPICAL PATCH TD SCH (10:04)
[2021-09-29] MEDS: LIDOCAINE 5% TOPICAL PATCH TP SCH (10:05)
[2021-09-29] MEDS: THIAMINE HCL 100 MG TABLET (FP) PO SCH (21:10)
[2021-09-29] MEDS: hydrOXYzine PAMOATE 25 MG CAPSULE (FP) PO PRN (21:11)
[2021-09-29] MEDS: LIDOCAINE PATCH REMOVAL MC SCH (21:11)
[2021-09-29] MEDS: MELATONIN 5 MG TABLETS PO SCH (21:11)
[2021-09-30] MEDS: DOCUSATE SODIUM 100 MG CAPSULE (FP) PO SCH ×3 (06:37→21:10)
[2021-09-30] MEDS: methaDONE HCL 10 MG TABLET PO SCH (06:38)
[2021-09-30] MEDS: FERROUS SO4 325 MG TABLET (FP) PO SCH ×3 (07:01→16:48)
[2021-09-30] MEDS: ALBUTEROL SO4 HFA INHALER IH PRN (09:41)
[2021-09-30] MEDS: busPIRone HCL 5 MG TABLET PO SCH ×2 (09:42→21:11)
[2021-09-30] MEDS: LIDOCAINE 5% TOPICAL PATCH TP SCH (09:42)
[2021-09-30] MEDS: NICOTINE 7 MG/24 HOURS TOPICAL PATCH TD SCH (09:43)
[2021-09-30] MEDS: OLANZapine 5 MG TABLET PO SCH ×2 (09:43→21:10)
[2021-09-30] MEDS: PRENATAL VITAMINS W/ FOLIC ACID TABLET (FP) PO SCH (09:43)
[2021-09-30] MEDS: MELATONIN 5 MG TABLETS PO SCH (21:09)
[2021-09-30] MEDS: THIAMINE HCL 100 MG TABLET (FP) PO SCH (21:09)
[2021-09-30] MEDS: METHOCARBAMOL 500 MG TABLET PO PRN (21:10)
[2021-09-30] MEDS: LIDOCAINE PATCH REMOVAL MC SCH (21:47)
[2021-10-01] MEDS: methaDONE HCL 10 MG TABLET PO SCH (06:38)
[2021-10-01] MEDS: DOCUSATE SODIUM 100 MG CAPSULE (FP) PO SCH ×3 (06:39→21:13)
[2021-10-01] MEDS: FERROUS SO4 325 MG TABLET (FP) PO SCH ×3 (07:24→16:34)
[2021-10-01] MEDS: PRENATAL VITAMINS W/ FOLIC ACID TABLET (FP) PO SCH (09:41)
[2021-10-01] MEDS: OLANZapine 5 MG TABLET PO SCH ×2 (09:41→21:12)
[2021-10-01] MEDS: busPIRone HCL 5 MG TABLET PO SCH ×2 (09:41→21:13)
[2021-10-01] MEDS: LIDOCAINE 5% TOPICAL PATCH TP SCH (09:42)
[2021-10-01] MEDS: NICOTINE 7 MG/24 HOURS TOPICAL PATCH TD SCH (09:42)
[2021-10-01] MEDS: hydrOXYzine PAMOATE 25 MG CAPSULE (FP) PO PRN (09:43)
[2021-10-01] MEDS: THIAMINE HCL 100 MG TABLET (FP) PO SCH (21:12)
[2021-10-01] MEDS: MELATONIN 5 MG TABLETS PO SCH (21:12)
[2021-10-01] MEDS: LIDOCAINE PATCH REMOVAL MC SCH (21:13)
[2021-10-02] MEDS: methaDONE HCL 10 MG TABLET PO SCH (06:19)
[2021-10-02 06:59] VITALS: TEMP 98.2
[2021-10-02] MEDS: FERROUS SO4 325 MG TABLET (FP) PO SCH ×3 (07:13→17:16)
[2021-10-02] MEDS: DOCUSATE SODIUM 100 MG CAPSULE (FP) PO SCH ×3 (07:13→22:03)
[2021-10-02] MEDS: NICOTINE 7 MG/24 HOURS TOPICAL PATCH TD SCH (10:04)
[2021-10-02] MEDS: PRENATAL VITAMINS W/ FOLIC ACID TABLET (FP) PO SCH (10:04)
[2021-10-02] MEDS: busPIRone HCL 5 MG TABLET PO SCH ×2 (10:05→22:03)
[2021-10-02] MEDS: LIDOCAINE 5% TOPICAL PATCH TP SCH (10:05)
[2021-10-02] MEDS: OLANZapine 5 MG TABLET PO SCH ×2 (10:06→22:03)
[2021-10-02] MEDS: ALBUTEROL SO4 HFA INHALER IH PRN (19:30)
[2021-10-02] MEDS: MELATONIN 5 MG TABLETS PO SCH (22:03)
[2021-10-02] MEDS: THIAMINE HCL 100 MG TABLET (FP) PO SCH (22:03)
[2021-10-02] MEDS: hydrOXYzine PAMOATE 25 MG CAPSULE (FP) PO PRN (22:03)
[2021-10-02] MEDS: LIDOCAINE PATCH REMOVAL MC SCH (22:03)
[2021-10-03] MEDS: methaDONE HCL 10 MG TABLET PO SCH (06:12)
[2021-10-03] MEDS: DOCUSATE SODIUM 100 MG CAPSULE (FP) PO SCH (06:12)
[2021-10-03] MEDS: FERROUS SO4 325 MG TABLET (FP) PO SCH (08:22)
[2021-10-03 09:16] VITALS: BP 106/68; PULSE 95
[2021-10-03] MEDS: PRENATAL VITAMINS W/ FOLIC ACID TABLET (FP) PO SCH (09:20)
[2021-10-03] MEDS: LIDOCAINE 5% TOPICAL PATCH TP SCH (09:21)
[2021-10-03] MEDS: busPIRone HCL 5 MG TABLET PO SCH (09:21)
[2021-10-03] MEDS: OLANZapine 5 MG TABLET PO SCH (09:21)
[2021-10-03] MEDS: NICOTINE 7 MG/24 HOURS TOPICAL PATCH TD SCH (09:21)
== END 2021-10-03 09:40 | disposition home or self-care (01) | DRG 772 ==
LOC: YASAS 14:58 → Y5N 15:00
PROVIDERS: ADMIT Allergy & Immunology; ATTEND Allergy & Immunology
PROC: HZ42ZZZ Group Counseling for Substance Abuse Treatment, Cognitive-Behavioral (ICD-10-PCS; principal; 2021-09-13)
DX: F14.20 Cocaine dependence, uncomplicated (principal); F16.20 Hallucinogen dependence, uncomplicated; F11.20 Opioid dependence, uncomplicated; F12.20 Cannabis dependence, uncomplicated; F17.210 Nicotine dependence, cigarettes, uncomplicated; F31.9 Bipolar disorder, unspecified; F20.9 Schizophrenia, unspecified; F19.24 Other psychoactive substance dependence with psychoactive substance-induced mood disorder; G62.9 Polyneuropathy, unspecified; I10 Essential (primary) hypertension; J45.909 Unspecified asthma, uncomplicated; M48.061 Spinal stenosis, lumbar region without neurogenic claudication; M41.9 Scoliosis, unspecified; M54.50 Low back pain, unspecified; G89.29 Other chronic pain; Z87.828 Personal history of other (healed) physical injury and trauma; Z99.89 Dependence on other enabling machines and devices
CPT/HCPCS: 81003; C9803-CS; U0003; U0005

== ENCOUNTER 2021-11-28 11:23 | Inpatient (IN) | payer BC ==
[2021-11-28 12:23] VITALS: BMI 19.8
[2021-11-28] MEDS ORDERED: ONDANSETRON *ODT* 4 MG TABLET SL PRN (13:18)
[2021-11-28] MEDS ORDERED: LOPERAMIDE HCL 2 MG CAPSULE PO PRN (13:18)
[2021-11-28] MEDS ORDERED: chlordiazePOXIDE HCL 25 MG CAPSULE PO PRN (13:18)
[2021-11-28] MEDS ORDERED: NICOTINE 10 MG CARTRIDGE (INHALER) IH PRN (13:18)
[2021-11-28] MEDS ORDERED: NICOTINE POLACRILEX 2 MG GUM BUC PRN (13:18)
[2021-11-28] MEDS ORDERED: ACETAMINOPHEN 325 MG TABLET (FP) PO PRN ×2 (13:18)
[2021-11-28] MEDS ORDERED: IBUPROFEN 600 MG TABLET (FP) PO PRN (13:18)
[2021-11-28] MEDS ORDERED: MAGNESIUM HYDROX 2400MG/30ML ORAL SUSPENSION 30 ML CUP PO PRN (13:18)
[2021-11-28] MEDS ORDERED: BENZOCAINE/MENTHOL (CHLORASEPTIC ) LOZENGE MM PRN (13:18)
[2021-11-28] MEDS ORDERED: MAGNESIUM CITRATE 300 ML BOTTLE PO PRN (13:18)
[2021-11-28] MEDS ORDERED: MAG HYDROX/AL HYDROX/SIMETH 30 ML UNIT-DOSE CUP PO PRN (13:18)
[2021-11-28] MEDS ORDERED: DICYCLOMINE HCL 10 MG CAPSULE PO PRN (13:18)
[2021-11-28] MEDS ORDERED: BISMUTH SUBSALICYLATE 524 MG/30 ML PO PRN (13:18)
[2021-11-28] MEDS ORDERED: NALOXONE HCL (KLOXXADO) 8 MG SPRAY NS PRN (13:18)
[2021-11-28] MEDS ORDERED: IBUPROFEN 400 MG TABLET (FP) PO PRN (13:18)
[2021-11-28] MEDS ORDERED: ALBUTEROL SO4 HFA INHALER IH PRN (13:23)
[2021-11-28] MEDS ORDERED: methaDONE HCL 10 MG TABLET PO ONE (13:25)
[2021-11-28] MEDS: hydrOXYzine PAMOATE 25 MG CAPSULE (FP) PO SCH ×3 (15:11→23:00)
[2021-11-28] MEDS: METHOCARBAMOL 500 MG TABLET PO PRN (18:20)
[2021-11-28] MEDS: chlordiazePOXIDE HCL 25 MG CAPSULE PO SCH ×2 (18:21→23:01)
[2021-11-28] MEDS: MELATONIN 5 MG TABLETS PO SCH (23:00)
[2021-11-28] MEDS: THIAMINE HCL 100 MG TABLET (FP) PO SCH (23:00)
[2021-11-28] MEDS: VITAMINS A AND D TOPICAL OINTMENT 60 GM TUBE TP SCH (23:07)
[2021-11-29] MEDS: VITAMINS A AND D TOPICAL OINTMENT 60 GM TUBE TP SCH ×4 (01:02→18:15)
[2021-11-29] MEDS: chlordiazePOXIDE HCL 25 MG CAPSULE PO SCH ×4 (06:19→22:41)
[2021-11-29] MEDS: hydrOXYzine PAMOATE 25 MG CAPSULE (FP) PO SCH (06:19)
[2021-11-29] MEDS ORDERED: hydrOXYzine PAMOATE 25 MG CAPSULE (FP) PO PRN (08:37)
[2021-11-29 10:38] LABS: HEMATOCRIT 35.9 % (35.4-49); HEMOGLOBIN 12.1 GM/dL (11.7-16.9); MCH 33.1 pg (25.7-33.7); MCHC 33.7 g/dl (32.0-35.9); MEAN CELL VOLUME 98.2 fl (80-96); MEAN PLT VOLUME 9.2 fl (7.5-11.1); PLATELET COUNT 156 10^3/uL (134-434); RBC 3.66 M/mm3 (4.00-5.60); RDW 12.8 % (11.9-15.9); WHITE BLOOD COUNT 5.4 K/mm3 (4.0-10.0)
[2021-11-29] MEDS: PRENATAL VITAMINS W/ FOLIC ACID TABLET (FP) PO SCH (10:43)
[2021-11-29] MEDS: METHOCARBAMOL 500 MG TABLET PO PRN (10:43)
[2021-11-29] MEDS: methaDONE HCL 10 MG TABLET PO SCH (10:43)
[2021-11-29 10:45] LABS: CALCIUM 9.2 mg/dL (8.5-10.1)
[2021-11-29 10:46] LABS: ALBUMIN 3.8 g/dl (3.4-5.0); BLOOD UREA NITROGEN 16.4 mg/dL (7-18)
[2021-11-29 10:49] LABS: TOT PROT 7.1 g/dl (6.4-8.2)
[2021-11-29 10:50] LABS: BILIRUBIN,TOTAL 0.6 mg/dL (0.2-1)
[2021-11-29] MEDS: ARTIFICIAL TEARS (POLYVINYL ALCOHOL) OPTH DROPS OS SCH (22:39)
[2021-11-29] MEDS: MELATONIN 5 MG TABLETS PO SCH (22:40)
[2021-11-29] MEDS: OLANZapine 5 MG TABLET PO SCH (22:40)
[2021-11-29] MEDS: busPIRone HCL 5 MG TABLET PO SCH (22:40)
[2021-11-29] MEDS: THIAMINE HCL 100 MG TABLET (FP) PO SCH (22:40)
[2021-11-30] MEDS: VITAMINS A AND D TOPICAL OINTMENT 60 GM TUBE TP SCH ×4 (00:53→22:59)
[2021-11-30] MEDS: methaDONE HCL 10 MG TABLET PO SCH (06:32)
[2021-11-30] MEDS: chlordiazePOXIDE HCL 25 MG CAPSULE PO SCH ×4 (06:32→23:54)
[2021-11-30] MEDS: ARTIFICIAL TEARS (POLYVINYL ALCOHOL) OPTH DROPS OS SCH ×2 (11:09→23:52)
[2021-11-30] MEDS: busPIRone HCL 5 MG TABLET PO SCH ×2 (11:10→23:52)
[2021-11-30] MEDS: PRENATAL VITAMINS W/ FOLIC ACID TABLET (FP) PO SCH (11:10)
[2021-11-30] MEDS: OLANZapine 5 MG TABLET PO SCH ×2 (11:10→23:54)
[2021-11-30] MEDS: THIAMINE HCL 100 MG TABLET (FP) PO SCH (23:53)
[2021-11-30] MEDS: MELATONIN 5 MG TABLETS PO SCH (23:53)
[2021-12-01] MEDS ORDERED: chlordiazePOXIDE HCL 10 MG CAPSULE PO PRN
[2021-12-01] MEDS: VITAMINS A AND D TOPICAL OINTMENT 60 GM TUBE TP SCH ×5 (01:08→23:01)
[2021-12-01] MEDS: methaDONE HCL 10 MG TABLET PO SCH (06:30)
[2021-12-01] MEDS: chlordiazePOXIDE HCL 10 MG CAPSULE PO SCH ×4 (06:30→22:56)
[2021-12-01] MEDS: OLANZapine 5 MG TABLET PO SCH ×2 (10:35→22:56)
[2021-12-01] MEDS: busPIRone HCL 5 MG TABLET PO SCH ×2 (10:35→22:56)
[2021-12-01] MEDS: ARTIFICIAL TEARS (POLYVINYL ALCOHOL) OPTH DROPS OS SCH ×2 (10:36→22:56)
[2021-12-01] MEDS: PRENATAL VITAMINS W/ FOLIC ACID TABLET (FP) PO SCH (10:36)
[2021-12-01] MEDS: THIAMINE HCL 100 MG TABLET (FP) PO SCH (22:56)
[2021-12-01] MEDS: MELATONIN 5 MG TABLETS PO SCH (22:56)
[2021-12-02] MEDS: methaDONE HCL 10 MG TABLET PO SCH (06:04)
[2021-12-02] MEDS: chlordiazePOXIDE HCL 10 MG CAPSULE PO SCH ×2 (06:06→17:47)
[2021-12-02] MEDS: VITAMINS A AND D TOPICAL OINTMENT 60 GM TUBE TP SCH ×3 (06:09→17:48)
[2021-12-02] MEDS: PRENATAL VITAMINS W/ FOLIC ACID TABLET (FP) PO SCH (10:57)
[2021-12-02] MEDS: busPIRone HCL 5 MG TABLET PO SCH ×2 (10:58→23:08)
[2021-12-02] MEDS: OLANZapine 5 MG TABLET PO SCH ×2 (10:58→23:08)
[2021-12-02] MEDS: ARTIFICIAL TEARS (POLYVINYL ALCOHOL) OPTH DROPS OS SCH ×2 (10:58→23:08)
[2021-12-02] MEDS: METHOCARBAMOL 500 MG TABLET PO PRN (10:59)
[2021-12-02] MEDS: THIAMINE HCL 100 MG TABLET (FP) PO SCH (23:08)
[2021-12-02] MEDS: MELATONIN 5 MG TABLETS PO SCH (23:08)
[2021-12-03] MEDS: VITAMINS A AND D TOPICAL OINTMENT 60 GM TUBE TP SCH ×3 (01:00→11:27)
[2021-12-03] MEDS ORDERED: chlordiazePOXIDE HCL 10 MG CAPSULE PO ONE (05:00)
[2021-12-03] MEDS: methaDONE HCL 10 MG TABLET PO SCH (05:51)
[2021-12-03] MEDS: ARTIFICIAL TEARS (POLYVINYL ALCOHOL) OPTH DROPS OS SCH (10:49)
[2021-12-03] MEDS: busPIRone HCL 5 MG TABLET PO SCH (10:49)
[2021-12-03] MEDS: PRENATAL VITAMINS W/ FOLIC ACID TABLET (FP) PO SCH (10:49)
[2021-12-03] MEDS: OLANZapine 5 MG TABLET PO SCH (10:50)
[2021-12-03 13:16] VITALS: BP 147/86; PULSE 88; TEMP 97.5
== END 2021-12-03 12:43 | disposition other institution (70) | DRG 773 ==
LOC: YASAS 11:23 → Y3N 13:25
PROVIDERS: ADMIT Allergy & Immunology; ATTEND Surgery
PROC: HZ2ZZZZ Detoxification Services for Substance Abuse Treatment (ICD-10-PCS; principal; 2021-11-28)
DX: F11.23 Opioid dependence with withdrawal (principal); F10.230 Alcohol dependence with withdrawal, uncomplicated; F14.20 Cocaine dependence, uncomplicated; F16.20 Hallucinogen dependence, uncomplicated; F12.20 Cannabis dependence, uncomplicated; F17.210 Nicotine dependence, cigarettes, uncomplicated; F25.9 Schizoaffective disorder, unspecified; F31.9 Bipolar disorder, unspecified; F19.24 Other psychoactive substance dependence with psychoactive substance-induced mood disorder; G62.9 Polyneuropathy, unspecified; I10 Essential (primary) hypertension; K59.03 Drug induced constipation; M41.9 Scoliosis, unspecified; M54.50 Low back pain, unspecified; G89.29 Other chronic pain; R73.9 Hyperglycemia, unspecified; R74.01 Elevation of levels of liver transaminase levels; Z28.311 Partially vaccinated for COVID-19; Z99.89 Dependence on other enabling machines and devices; Z91.14 Patient's other noncompliance with medication regimen
CPT/HCPCS: 36415; 80053; 85027; 86780; C9803-CS; Q0162; U0003; U0005

== ENCOUNTER 2021-12-03 11:49 | Inpatient (IN) | payer BC ==
[2021-12-03] MEDS ORDERED: MAGNESIUM CITRATE 300 ML BOTTLE PO PRN (14:19)
[2021-12-03] MEDS ORDERED: MAG HYDROX/AL HYDROX/SIMETH 30 ML UNIT-DOSE CUP PO PRN (14:19)
[2021-12-03] MEDS ORDERED: guaiFENesin 200 MG/10 ML 10 ML UNIT-DOSE CUPS PO PRN (14:19)
[2021-12-03] MEDS ORDERED: LOPERAMIDE HCL 2 MG CAPSULE PO PRN (14:19)
[2021-12-03] MEDS ORDERED: ACETAMINOPHEN 325 MG TABLET (FP) PO PRN (14:19)
[2021-12-03] MEDS ORDERED: MAGNESIUM HYDROX 2400MG/30ML ORAL SUSPENSION 30 ML CUP PO PRN (14:19)
[2021-12-03] MEDS ORDERED: P-EPHED 60MG/TRIPROLIDI 2.5MG TABLET PO PRN (14:19)
[2021-12-03] MEDS ORDERED: IBUPROFEN 400 MG TABLET (FP) PO PRN (14:19)
[2021-12-03] MEDS ORDERED: NICOTINE 10 MG CARTRIDGE (INHALER) IH PRN (14:19)
[2021-12-03] MEDS ORDERED: NALOXONE (NARCAN) HCL 4 MG/0.1 ML SPRAY NS PRN (14:24)
[2021-12-03] MEDS ORDERED: ARTIFICIAL TEARS (POLYVINYL ALCOHOL) OPTH DROPS OU PRN (14:28)
[2021-12-03] MEDS: hydrOXYzine PAMOATE 25 MG CAPSULE (FP) PO SCH ×2 (18:25→21:21)
[2021-12-03] MEDS ORDERED: TUBERCULIN PPD 5 TU/0.1ML VIAL ID ONE ×2 (18:55→21:39)
[2021-12-03] MEDS: THIAMINE HCL 100 MG TABLET (FP) PO SCH (21:20)
[2021-12-03] MEDS: MELATONIN 5 MG TABLETS PO SCH (21:20)
[2021-12-03] MEDS: OLANZapine 5 MG TABLET PO SCH (21:22)
[2021-12-03] MEDS: busPIRone HCL 10 MG TABLET (FP) PO SCH (21:31)
[2021-12-04] MEDS: methaDONE HCL 10 MG TABLET PO SCH (06:33)
[2021-12-04] MEDS: hydrOXYzine PAMOATE 25 MG CAPSULE (FP) PO SCH ×2 (06:33→09:21)
[2021-12-04] MEDS: busPIRone HCL 10 MG TABLET (FP) PO SCH ×2 (09:19→21:22)
[2021-12-04] MEDS: PRENATAL VITAMINS W/ FOLIC ACID TABLET (FP) PO SCH (09:19)
[2021-12-04] MEDS: NICOTINE 7 MG/24 HOURS TOPICAL PATCH TD SCH (09:20)
[2021-12-04] MEDS: OLANZapine 5 MG TABLET PO SCH ×2 (09:21→21:22)
[2021-12-04] MEDS: TETRAHYDROZOLINE HCL EYE DROPS OD PRN (12:03)
[2021-12-04] MEDS ORDERED: hydrOXYzine PAMOATE 25 MG CAPSULE (FP) PO PRN (13:34)
[2021-12-04] MEDS: THIAMINE HCL 100 MG TABLET (FP) PO SCH (21:21)
[2021-12-04] MEDS: MELATONIN 5 MG TABLETS PO SCH (21:21)
[2021-12-05] MEDS: methaDONE HCL 10 MG TABLET PO SCH (06:30)
[2021-12-05] MEDS: TETRAHYDROZOLINE HCL EYE DROPS OD PRN (06:31)
[2021-12-05] MEDS: busPIRone HCL 10 MG TABLET (FP) PO SCH ×2 (09:51→21:25)
[2021-12-05] MEDS: OLANZapine 5 MG TABLET PO SCH ×2 (09:51→21:24)
[2021-12-05] MEDS: PRENATAL VITAMINS W/ FOLIC ACID TABLET (FP) PO SCH (09:52)
[2021-12-05] MEDS: NICOTINE 7 MG/24 HOURS TOPICAL PATCH TD SCH (09:53)
[2021-12-05] MEDS: MELATONIN 5 MG TABLETS PO SCH (21:24)
[2021-12-05] MEDS: THIAMINE HCL 100 MG TABLET (FP) PO SCH (21:24)
[2021-12-06] MEDS: methaDONE HCL 10 MG TABLET PO SCH (06:23)
[2021-12-06] MEDS: TETRAHYDROZOLINE HCL EYE DROPS OD PRN (06:24)
[2021-12-06] MEDS: busPIRone HCL 10 MG TABLET (FP) PO SCH ×2 (09:40→21:27)
[2021-12-06] MEDS: PRENATAL VITAMINS W/ FOLIC ACID TABLET (FP) PO SCH (09:41)
[2021-12-06] MEDS: NICOTINE 7 MG/24 HOURS TOPICAL PATCH TD SCH (09:41)
[2021-12-06] MEDS: OLANZapine 5 MG TABLET PO SCH ×3 (09:42→21:36)
[2021-12-06 12:29] LABS: GLUCOSE,FASTING 99 mg/dL (74-106)
[2021-12-06 12:33] LABS: SGOT/AST 23 U/L (15-37)
[2021-12-06] MEDS: THIAMINE HCL 100 MG TABLET (FP) PO SCH (21:27)
[2021-12-06] MEDS: MELATONIN 5 MG TABLETS PO SCH (21:27)
[2021-12-07] MEDS: methaDONE HCL 10 MG TABLET PO SCH (06:21)
[2021-12-07] MEDS: busPIRone HCL 10 MG TABLET (FP) PO SCH ×2 (09:39→21:28)
[2021-12-07] MEDS: PRENATAL VITAMINS W/ FOLIC ACID TABLET (FP) PO SCH (09:40)
[2021-12-07] MEDS: NICOTINE 7 MG/24 HOURS TOPICAL PATCH TD SCH (09:40)
[2021-12-07] MEDS: OLANZapine 5 MG TABLET PO SCH ×2 (09:40→21:27)
[2021-12-07] MEDS: LIDOCAINE 5% TOPICAL PATCH TP SCH (13:53)
[2021-12-07] MEDS: VITAMINS A AND D TOPICAL OINTMENT 60 GM TUBE TP SCH (15:12)
[2021-12-07] MEDS: MELATONIN 5 MG TABLETS PO SCH (21:27)
[2021-12-07] MEDS: THIAMINE HCL 100 MG TABLET (FP) PO SCH (21:27)
[2021-12-07] MEDS: LIDOCAINE PATCH REMOVAL MC SCH (21:29)
[2021-12-08] MEDS: methaDONE HCL 10 MG TABLET PO SCH (06:26)
[2021-12-08] MEDS: TETRAHYDROZOLINE HCL EYE DROPS OD PRN (06:28)
[2021-12-08] MEDS: LIDOCAINE 5% TOPICAL PATCH TP SCH (10:06)
[2021-12-08] MEDS: OLANZapine 5 MG TABLET PO SCH ×2 (10:06→22:13)
[2021-12-08] MEDS: PRENATAL VITAMINS W/ FOLIC ACID TABLET (FP) PO SCH (10:06)
[2021-12-08] MEDS: busPIRone HCL 10 MG TABLET (FP) PO SCH ×2 (10:07→22:16)
[2021-12-08] MEDS: VITAMINS A AND D TOPICAL OINTMENT 60 GM TUBE TP SCH (10:07)
[2021-12-08] MEDS: NICOTINE 7 MG/24 HOURS TOPICAL PATCH TD SCH (10:07)
[2021-12-08] MEDS: ALBUTEROL SO4 HFA INHALER IH PRN (13:24)
[2021-12-08] MEDS: THIAMINE HCL 100 MG TABLET (FP) PO SCH (22:14)
[2021-12-08] MEDS: MELATONIN 5 MG TABLETS PO SCH (22:14)
[2021-12-08] MEDS: LIDOCAINE PATCH REMOVAL MC SCH (22:14)
[2021-12-09] MEDS: methaDONE HCL 10 MG TABLET PO SCH (06:15)
[2021-12-09] MEDS: VITAMINS A AND D TOPICAL OINTMENT 60 GM TUBE TP SCH (09:45)
[2021-12-09] MEDS: OLANZapine 5 MG TABLET PO SCH ×2 (09:45→21:25)
[2021-12-09] MEDS: NICOTINE 7 MG/24 HOURS TOPICAL PATCH TD SCH (09:45)
[2021-12-09] MEDS: busPIRone HCL 10 MG TABLET (FP) PO SCH ×2 (09:45→21:24)
[2021-12-09] MEDS: PRENATAL VITAMINS W/ FOLIC ACID TABLET (FP) PO SCH (09:45)
[2021-12-09] MEDS: LIDOCAINE 5% TOPICAL PATCH TP SCH (09:45)
[2021-12-09] MEDS: LIDOCAINE PATCH REMOVAL MC SCH (21:24)
[2021-12-09] MEDS: MELATONIN 5 MG TABLETS PO SCH (21:24)
[2021-12-09] MEDS: THIAMINE HCL 100 MG TABLET (FP) PO SCH (21:24)
[2021-12-09] MEDS: TETRAHYDROZOLINE HCL EYE DROPS OD PRN (21:25)
[2021-12-10] MEDS: methaDONE HCL 10 MG TABLET PO SCH (06:02)
[2021-12-10] MEDS: OLANZapine 5 MG TABLET PO SCH ×2 (10:07→21:22)
[2021-12-10] MEDS: busPIRone HCL 10 MG TABLET (FP) PO SCH ×2 (10:07→21:23)
[2021-12-10] MEDS: NICOTINE 7 MG/24 HOURS TOPICAL PATCH TD SCH (10:08)
[2021-12-10] MEDS: LIDOCAINE 5% TOPICAL PATCH TP SCH (10:08)
[2021-12-10] MEDS: PRENATAL VITAMINS W/ FOLIC ACID TABLET (FP) PO SCH (10:08)
[2021-12-10] MEDS: VITAMINS A AND D TOPICAL OINTMENT 60 GM TUBE TP SCH (10:09)
[2021-12-10] MEDS: THIAMINE HCL 100 MG TABLET (FP) PO SCH (21:22)
[2021-12-10] MEDS: MELATONIN 5 MG TABLETS PO SCH (21:22)
[2021-12-10] MEDS: LIDOCAINE PATCH REMOVAL MC SCH (21:23)
[2021-12-11] MEDS: methaDONE HCL 10 MG TABLET PO SCH (06:27)
[2021-12-11] MEDS: LIDOCAINE 5% TOPICAL PATCH TP SCH (10:05)
[2021-12-11] MEDS: busPIRone HCL 10 MG TABLET (FP) PO SCH ×2 (10:06→21:24)
[2021-12-11] MEDS: OLANZapine 5 MG TABLET PO SCH ×2 (10:06→21:23)
[2021-12-11] MEDS: PRENATAL VITAMINS W/ FOLIC ACID TABLET (FP) PO SCH (10:06)
[2021-12-11] MEDS: VITAMINS A AND D TOPICAL OINTMENT 60 GM TUBE TP SCH (10:07)
[2021-12-11] MEDS: NICOTINE 7 MG/24 HOURS TOPICAL PATCH TD SCH (10:07)
[2021-12-11] MEDS: TETRAHYDROZOLINE HCL EYE DROPS OD PRN (10:07)
[2021-12-11] MEDS: MELATONIN 5 MG TABLETS PO SCH (21:23)
[2021-12-11] MEDS: LIDOCAINE PATCH REMOVAL MC SCH (21:23)
[2021-12-11] MEDS: THIAMINE HCL 100 MG TABLET (FP) PO SCH (21:23)
[2021-12-12] MEDS: methaDONE HCL 10 MG TABLET PO SCH (06:31)
[2021-12-12] MEDS: PRENATAL VITAMINS W/ FOLIC ACID TABLET (FP) PO SCH (10:12)
[2021-12-12] MEDS: busPIRone HCL 10 MG TABLET (FP) PO SCH ×2 (10:13→21:28)
[2021-12-12] MEDS: NICOTINE 7 MG/24 HOURS TOPICAL PATCH TD SCH (10:13)
[2021-12-12] MEDS: OLANZapine 5 MG TABLET PO SCH ×2 (10:13→21:28)
[2021-12-12] MEDS: VITAMINS A AND D TOPICAL OINTMENT 60 GM TUBE TP SCH (10:14)
[2021-12-12] MEDS: ALBUTEROL SO4 HFA INHALER IH PRN (10:15)
[2021-12-12] MEDS ORDERED: COLLOIDAL OATMEAL 1 BAR EACH TP PRN (10:37)
[2021-12-12] MEDS: LIDOCAINE 5% TOPICAL PATCH TP SCH (11:02)
[2021-12-12] MEDS: OFLOXACIN 0.3% OPHTHALMIC SOLUTION 5 ML BOTTLE OP SCH ×3 (13:36→21:44)
[2021-12-12] MEDS: MELATONIN 5 MG TABLETS PO SCH (21:27)
[2021-12-12] MEDS: LIDOCAINE PATCH REMOVAL MC SCH (21:27)
[2021-12-12] MEDS: THIAMINE HCL 100 MG TABLET (FP) PO SCH (21:27)
[2021-12-13] MEDS: OFLOXACIN 0.3% OPHTHALMIC SOLUTION 5 ML BOTTLE OP SCH ×3 (05:07→17:25)
[2021-12-13] MEDS: methaDONE HCL 10 MG TABLET PO SCH (06:23)
[2021-12-13] MEDS: NICOTINE 7 MG/24 HOURS TOPICAL PATCH TD SCH (09:59)
[2021-12-13] MEDS: PRENATAL VITAMINS W/ FOLIC ACID TABLET (FP) PO SCH (09:59)
[2021-12-13] MEDS: LIDOCAINE 5% TOPICAL PATCH TP SCH (09:59)
[2021-12-13] MEDS: VITAMINS A AND D TOPICAL OINTMENT 60 GM TUBE TP SCH (10:00)
[2021-12-13] MEDS: OLANZapine 5 MG TABLET PO SCH ×2 (10:02→21:18)
[2021-12-13] MEDS: busPIRone HCL 10 MG TABLET (FP) PO SCH ×2 (10:02→21:18)
[2021-12-13] MEDS: MELATONIN 5 MG TABLETS PO SCH (21:17)
[2021-12-13] MEDS: THIAMINE HCL 100 MG TABLET (FP) PO SCH (21:18)
[2021-12-13] MEDS: LIDOCAINE PATCH REMOVAL MC SCH (21:18)
[2021-12-14] MEDS: methaDONE HCL 10 MG TABLET PO SCH (07:04)
[2021-12-14] MEDS: busPIRone HCL 10 MG TABLET (FP) PO SCH ×2 (09:57→21:45)
[2021-12-14] MEDS: PRENATAL VITAMINS W/ FOLIC ACID TABLET (FP) PO SCH (09:57)
[2021-12-14] MEDS: OLANZapine 5 MG TABLET PO SCH ×2 (09:57→21:45)
[2021-12-14] MEDS: OFLOXACIN 0.3% OPHTHALMIC SOLUTION 5 ML BOTTLE OP SCH ×4 (09:58→21:45)
[2021-12-14] MEDS: LIDOCAINE 5% TOPICAL PATCH TP SCH (09:59)
[2021-12-14] MEDS: NICOTINE 7 MG/24 HOURS TOPICAL PATCH TD SCH (10:00)
[2021-12-14] MEDS: VITAMINS A AND D TOPICAL OINTMENT 60 GM TUBE TP SCH (10:00)
[2021-12-14] MEDS: MELATONIN 5 MG TABLETS PO SCH (21:44)
[2021-12-14] MEDS: THIAMINE HCL 100 MG TABLET (FP) PO SCH (21:44)
[2021-12-14] MEDS: LIDOCAINE PATCH REMOVAL MC SCH (21:45)
[2021-12-15] MEDS: methaDONE HCL 10 MG TABLET PO SCH (06:37)
[2021-12-15 07:33] VITALS: TEMP 97.7
[2021-12-15 09:15] VITALS: BP 146/102; PULSE 89
[2021-12-15] MEDS: LIDOCAINE 5% TOPICAL PATCH TP SCH (09:20)
[2021-12-15] MEDS: NICOTINE 7 MG/24 HOURS TOPICAL PATCH TD SCH (09:20)
[2021-12-15] MEDS: OLANZapine 5 MG TABLET PO SCH (09:20)
[2021-12-15] MEDS: PRENATAL VITAMINS W/ FOLIC ACID TABLET (FP) PO SCH (09:20)
[2021-12-15] MEDS: OFLOXACIN 0.3% OPHTHALMIC SOLUTION 5 ML BOTTLE OP SCH (09:20)
[2021-12-15] MEDS: VITAMINS A AND D TOPICAL OINTMENT 60 GM TUBE TP SCH (09:21)
[2021-12-15] MEDS: busPIRone HCL 10 MG TABLET (FP) PO SCH (09:21)
== END 2021-12-15 15:49 | disposition home or self-care (01) | DRG 772 ==
LOC: YASAS 11:49 → Y3E 11:51
PROVIDERS: ADMIT Allergy & Immunology; ATTEND Psychiatry & Neurology Pain Medicine
PROC: HZ42ZZZ Group Counseling for Substance Abuse Treatment, Cognitive-Behavioral (ICD-10-PCS; principal; 2021-12-03)
DX: F11.20 Opioid dependence, uncomplicated (principal); F10.20 Alcohol dependence, uncomplicated; F14.20 Cocaine dependence, uncomplicated; F16.20 Hallucinogen dependence, uncomplicated; F12.20 Cannabis dependence, uncomplicated; F17.210 Nicotine dependence, cigarettes, uncomplicated; F31.9 Bipolar disorder, unspecified; I10 Essential (primary) hypertension; J45.909 Unspecified asthma, uncomplicated; K59.03 Drug induced constipation; M54.50 Low back pain, unspecified; G89.29 Other chronic pain; H57.04 Mydriasis; H11.32 Conjunctival hemorrhage, left eye; S05.8X2D Other injuries of left eye and orbit, subsequent encounter; Y04.2XXD Assault by strike against or bumped into by another person, subsequent encounter; Z99.89 Dependence on other enabling machines and devices
CPT/HCPCS: 36415; 82947; 83036; 84450

== ENCOUNTER 2021-12-08 13:50 | Emergency (ER) | payer BC ==
[2021-12-08 14:18] VITALS: BP 119/70; PULSE 63; TEMP 98.3; BMI 20.4
[2021-12-08] MEDS ORDERED: TETRACAINE 0.5% HCL 0.6ML DROPPER.BOTTLE OD ONE (14:34)
[2021-12-08] MEDS ORDERED: FLUORESCEIN NA 1 EA STRIP OD ONE (14:35)
[2021-12-08] MEDS ORDERED: TETRACAINE 0.5% OPHTH SOLN 2 ML BOTTLE ONE (14:52)
[2021-12-08] MEDS ORDERED: FLUORESCEIN NA 1 EA STRIP ONE (14:52)
== END 2021-12-08 15:58 | disposition left against medical advice (07) ==
LOC: JERFT 13:50
DX: H57.12 Ocular pain, left eye (principal)
CPT/HCPCS: 99283-25

== ENCOUNTER 2021-12-11 11:32 | Emergency (ER) | payer BC ==
[2021-12-11 11:52] VITALS: BP 134/80; PULSE 56; TEMP 96.8; BMI 20.5
== END 2021-12-11 15:54 | disposition home or self-care (01) ==
LOC: JER 11:32
DX: S05.92XA Unspecified injury of left eye and orbit, initial encounter (principal); Y04.0XXA Assault by unarmed brawl or fight, initial encounter
CPT/HCPCS: 70450-TC; 70480-TC; 99284-25

== ENCOUNTER 2025-01-19 12:46 | Inpatient (IN) | payer OTHER ==
[2025-01-19 13:09] VITALS: BMI 19.1
[2025-01-19] MEDS ORDERED: BENZONATATE 200 MG CAPSULE PO PRN (14:02)
[2025-01-19] MEDS ORDERED: ACETAMINOPHEN 325 MG TABLET (FP) PO PRN (14:02)
[2025-01-19] MEDS ORDERED: NALOXONE (NARCAN) HCL 4 MG/0.1 ML SPRAY NS PRN (14:02)
[2025-01-19] MEDS ORDERED: NICOTINE POLACRILEX 2 MG LOZENGE BC PRN (14:02)
[2025-01-19] MEDS ORDERED: BENZOCAINE/MENTHOL (CHLORASEPTIC ) LOZENGE MM PRN (14:02)
[2025-01-19] MEDS ORDERED: guaiFENesin 600 MG TABLET.ER (FP) PO PRN (14:02)
[2025-01-19] MEDS ORDERED: POLYETHYLENE GLYCOL (HEALTHYLAX) 3350 17 GM PACKET PO PRN (14:02)
[2025-01-19] MEDS ORDERED: NICOTINE POLACRILEX 2 MG GUM BUC PRN (14:02)
[2025-01-19] MEDS ORDERED: BISMUTH SUBSALICYLATE 524 MG/30 ML PO PRN (14:02)
[2025-01-19] MEDS ORDERED: LOPERAMIDE HCL 2 MG CAPSULE PO PRN (14:02)
[2025-01-19] MEDS ORDERED: DICYCLOMINE HCL 10 MG CAPSULE PO PRN (14:02)
[2025-01-19] MEDS ORDERED: MAG HYDROX/AL HYDROX/SIMETH 30 ML UNIT-DOSE CUP PO PRN (14:02)
[2025-01-19] MEDS ORDERED: ONDANSETRON *ODT* 4 MG TABLET SL PRN (14:02)
[2025-01-19] MEDS: ALBUTEROL SO4 0.083% IH SOL 2.5 MG/3 ML VIAL.NEB. NEB SCH (15:56)
[2025-01-19] MEDS: ALBUTEROL SO4 HFA INHALER IH PRN (18:02)
[2025-01-19] MEDS: predniSONE 20 MG TABLET (UD) PO SCH (22:19)
[2025-01-19] MEDS: THIAMINE 100 MG TABLET PO SCH (22:19)
[2025-01-19] MEDS: SULFAMETHOXAZOLE/TRIMETHOPRIM 800MG/160MG D.S. TABLET PO SCH (22:19)
[2025-01-19] MEDS: MELATONIN 5 MG TABLETS PO SCH (22:19)
[2025-01-20] MEDS: amLODIPine BESYLATE 5 MG TABLET (FP) PO SCH (10:04)
[2025-01-20] MEDS: PRENATAL VITAMINS W/ FOLIC ACID TABLET (FP) PO SCH (10:07)
[2025-01-20] MEDS: BACITRACIN 0.9 GM PACKET TP PRN (10:10)
[2025-01-20 10:29] LABS: MCHC 31.5 g/dl (32.3-36.5); MEAN CELL VOLUME 100.0 fl (79.0-92.2); MEAN PLT VOLUME 10.3 fl (9.4-12.4); RDW 12.1 % (12.2-16.1)
[2025-01-20 12:08] LABS: ALK PHOS 74.0 U/L (40-150); CO2 25.0 mmol/L (21-32); GLUCOSE,RANDOM 99.0 mg/dL (74-106); TOT PROT 6.9 g/dl (6.4-8.2)
[2025-01-20 12:09] LABS: CREATININE 0.88 mg/dL (0.55-1.3); SGOT/AST 19.0 U/L (5-34); SGPT/ALT 18.0 U/L (0-55)
[2025-01-20] MEDS: BISACODYL 5 MG TABLET.DR (FP) PO PRN (17:35)
[2025-01-20] MEDS: busPIRone HCL 10 MG TABLET (FP) PO SCH (22:01)
[2025-01-21] MEDS: MAGNESIUM HYDROX 2400MG/30ML ORAL SUSPENSION 30 ML CUP PO PRN (17:44)
[2025-01-21 19:46] LABS: ABSOLUTE IMMATURE GRANULOCYTES 0.05 x10^3/uL (0.0-0.031); BASOPHILS # 0.03 x10^3/uL (0.01-0.08); EOSINOPHIL % 0.1 % (0.8-7.0); EOSINOPHILS # 0.02 x10^3/uL (0.04-0.54); MCHC 31.5 g/dl (32.3-36.5); MEAN CELL VOLUME 101.1 fl (79.0-92.2); MEAN PLT VOLUME 10.3 fl (9.4-12.4); MONOCYTE # 0.67 x10^3/uL (0.30-0.82); MONOCYTE % 4.8 % (5.3-12.2); RDW 12.2 % (12.2-16.1)
[2025-01-23 17:07] LABS: EPI CELLS 3 /uL (0-25.1); HYALINE CASTS 0 /uL (0-3.1); URINE APPEARANCE CLOUDY; URINE BACTERIA 6151 /uL (0-1359); URINE BILIRUBIN NEGATIVE (NEGATIVE); URINE COLOR YELLOW; URINE GLUCOSE (UA) NEGATIVE (NEGATIVE); URINE KETONE NEGATIVE (NEGATIVE); URINE LEUK ESTERASE NEGATIVE (NEGATIVE); URINE NITRITE POSITIVE (NEGATIVE); URINE PROTEIN NEGATIVE (NEGATIVE); URINE RBC 2 /uL (0-23.9); URINE UROBILINOGEN 0.2 mg/dL (0.2-1.0); URINE WBC 2 /uL (0-25.8)
[2025-01-23 22:45] VITALS: RESP 16
[2025-01-24 09:50] VITALS: BP 110/70; PULSE 68; TEMP 97.3
== END 2025-01-24 12:03 | disposition other institution (70) | DRG 773 ==
LOC: YASAS 12:46 → Y3N 15:19
PROVIDERS: ADMIT Allergy & Immunology; ATTEND Allergy & Immunology
PROC: HZ2ZZZZ Detoxification Services for Substance Abuse Treatment (ICD-10-PCS; principal; 2025-01-19)
DX: F11.23 Opioid dependence with withdrawal (principal); F10.20 Alcohol dependence, uncomplicated; F14.20 Cocaine dependence, uncomplicated; F16.20 Hallucinogen dependence, uncomplicated; F12.20 Cannabis dependence, uncomplicated; F17.210 Nicotine dependence, cigarettes, uncomplicated; F31.9 Bipolar disorder, unspecified; F25.9 Schizoaffective disorder, unspecified; F41.9 Anxiety disorder, unspecified; I10 Essential (primary) hypertension; J44.9 Chronic obstructive pulmonary disease, unspecified; I69.854 Hemiplegia and hemiparesis following other cerebrovascular disease affecting left non-dominant side
CPT/HCPCS: 36415; 80053; 81003; 85025; 85027; 86780; 94640